=== PATIENT | female | born 1950 | race Caucasian/White ===

== ENCOUNTER → 2018-02-23 08:30 | Outpatient (CLI) | payer MEDICARE, SELFPAY ==
[2018-02-23 10:58] LABS: Anion Gap 7 (5-15); BUN 18 mg/dL (7-18); BUN/Creat Ratio 20.3 RATIO (10-20); Calcium,Total 8.9 mg/dL (8.5-10.1); Chloride 105 mmol/L (98-107); Cholesterol 217 mg/dL (200); Creatinine, Serum 0.89 mg/dL (0.55-1.02); EST Glomerular Filtration Rate 68 mL/min (>60); Est Glom Filt Rate - Afr Amer 82 mL/min (>60); Free T3 2.6 pg/mL (2.18-3.98); Glucose 93 mg/dL (74-106); High Density Lipoprotein 63 mg/dL; Potassium 3.7 mmol/L (3.5-5.1); Sodium Level 139 mmol/L (136-145); T4 Total, Thyroxin 12.9 ug/dL (4.8-13.9); Thyroid Stim Hormone (TSH) 2.33 uIU/mL (0.358-3.74); Triglycerides 148 mg/dL; Very Low Density Lipoprotein 30 mg/dL (5-40)
== END ==
PROVIDERS: Family Provider Family Medicine; PCP Family Medicine; Visit Provider Family Medicine
DX: I10 Essential (primary) hypertension (principal); E03.9 Hypothyroidism, unspecified
CPT/HCPCS: 36415; 80048; 80061; 84436; 84443; 84481

== ENCOUNTER → 2018-05-03 16:23 | Outpatient (CLI) | payer MEDICARE, SELFPAY ==
[2018-05-03 17:18] LABS: Erythrocyte Sedimentation Rate 17 mm/hr (0-30)
[2018-05-03 17:21] LABS: Absolute Lymphocyte Count 1.79 X10^3/ul (0.83-4.51); Absolute Neutrophil Count 5.5 X10^3/uL (2.0-7.7); Basophil# 0.02 X10^3/uL; Basophil% 0.2 % (0-1); Eosinophil# 0.16 X10^3/uL; Hematocrit 39.2 % (37-47); Hemoglobin 12.6 g/dl (12.0-15.0); Lymphocyte # 1.79 X10^3/ul (4.0); Lymphocyte % 22.1 % (19-41); Mean Corp Hgb Conc 32.1 g/gl (32-36); Mean Corpuscular Hgb 28.1 pg (27.0-32.0); Mean Corpuscular Volume 87.3 fL (81-99); Mean Platelet Vol. 10.7 fl (6.2-12.0); Monocyte% 7.4 % (0-10); Neutrophil # 5.51 X10^3/uL (2.7-7.7); Neutrophil % 68.2 % (47-70); Platelet Count 262 K/mm3 (150-450); RBC Distribution Width CV 13.4 % (11.6-14.6); RBC Distribution Width SD 42.7 fl (35.1-43.9); Red Blood Count 4.49 M/mm3 (4.2-5.4); White Blood Count 8.1 K/mm3 (4.4-11.0)
[2018-05-03 17:22] LABS: POSITIVE COUNT NO; POSITIVE DIFFERENTIAL NO; POSITIVE MORPHOLOGY NO
[2018-05-03 17:33] LABS: CRP 4.99 mg/L (0.0-3.0)
== END ==
PROVIDERS: Family Provider Family Medicine; PCP Family Medicine; Visit Provider Specialist
DX: M17.12 Unilateral primary osteoarthritis, left knee (principal); M25.561 Pain in right knee
CPT/HCPCS: 36415; 85025; 85652; 86140

== ENCOUNTER → 2018-05-11 14:41 | Outpatient (CLI) | payer MEDICARE, SELFPAY ==
[2018-05-11 18:09] LABS: ALB/GLOB Ratio 1.1 RATIO (0.9-2.4); AST(SGOT) 22 U/L (15-37); Alanine Aminotransfer ALT/SGPT 25 U/L (13-56); Albumin, Serum 3.9 g/dL (3.2-5.0); Alkaline Phosphatase 110 U/L (45-117); Anion Gap 8 (5-15); BUN 18 mg/dL (7-18); BUN/Creat Ratio 20.1 RATIO (10-20); Calcium,Total 9.3 mg/dL (8.5-10.1); Chloride 102 mmol/L (98-107); Creatinine, Serum 0.89 mg/dL (0.55-1.02); EST Glomerular Filtration Rate 67 mL/min (>60); Est Glom Filt Rate - Afr Amer 81 mL/min (>60); Globulin 3.5 g/dL (2.2-4.2); Glucose 93 mg/dL (74-106); Protein, Total 7.4 g/dL (6.4-8.2); Sodium Level 142 mmol/L (136-145)
== END ==
PROVIDERS: Family Provider Family Medicine; PCP Family Medicine; Visit Provider Family Medicine
DX: Z01.818 Encounter for other preprocedural examination (principal)
CPT/HCPCS: 36415; 80053

== ENCOUNTER 2018-05-30 06:11 | Inpatient (IN) | payer MEDICARE, SELFPAY ==
[2018-05-16 14:01] VITALS: BP 141/78; PULSE 87; RESP 18; TEMP 36.2; O2SAT 96; BMI 40.5
[2018-05-16 14:43] LABS: International Normalized Ratio 1.1; Prothrombin Time (Protime)PT. 13.8 SECONDS (11.7-14.9)
[2018-05-16 14:44] LABS: Partial Thromboplast Time 42.9 Seconds (24.1-36.2)
[2018-05-16 15:47] LABS: Thyroid Stim Hormone (TSH) 1.52 uIU/mL (0.358-3.74)
--- NOTE | 2018-05-17 13:19 | HP.PCM_ITS ---
History and Physical DATE OF SURGERY: 05/30/2018 SCHEDULED PROCEDURE: left total knee arthroplasty HISTORY OF PRESENT ILLNESS: This is a 68-year-old female who has been having ongoing pain for the past 7 months in the left knee. Patient also is complaining of pain in the right knee. Patient underwent a previous right partial unicompartmental knee replacement in 2006 by outside physician. Patient states her left knee pain has been constant, aching, sharp, and sore. She has increased pain going up and down stairs, walking a moderate distance. Rest is somewhat helpful. Patient has difficult time with activities of daily living that requires any kneeling, steps, walking long distance. Patient has tripped/stumbled secondary to the left knee pain. She feels unsafe going up and down stairs and getting into the top for shower. Patient has tried rest, elevation, cortisone injection and weight loss with minimal relief. Patient has had previous [address] Asif. Patient has also undergone a left knee arthroscopy in 2016. Patient currently denies any chest pain, shortness of breath, fevers chills, recent infections. After discussion with Dr. Augusto Sellers, the patient elected to proceed with a left total knee arthroplasty. We are obtaining surgical clearance from patient's primary care physician. Patient has medical history pertinent for hypertension. REVIEW OF SYSTEMS: ROS: Const: Denies change in appetite, fever and weight change. CV: Denies chest pain, heart murmur and irregular heartbeat. Resp: Denies cough, pneumonia, shortness of breath, tuberculosis and wheezing. GI: Denies constipation, diarrhea, heartburn, nausea, rectal itching, bloody stools and vomiting. : . (F Genital Sx) Denies incontinence. Musculo: Reports trouble walking and weakness, but denies leg swelling and pain. Skin: Denies Raynaud's, history of shingles and tattoo. Neuro: Denies ambulatory dysfunction, dizziness, numbness/tingling and tremor. Psych: Reports stress, but denies anxiety and insomnia. Donald/Lymph: Reports bleeding/bruising tendency, but denies anemia and past transfusion. Reviewed, no changes. PAST MEDICAL HISTORY: Advance Care Plan: No Advance Directives Effective Date: 05/03/2018 PMH: Medical Problems: Arthritis, High Blood Pressure, Hypercholesterolemia, Ulcers, Vision Problems/ Blind, Diverticulitis Accidents: Biceptal Tendon - (1997) WORK INJURY Surgical Hx: Gallbladder - (1994) Hysterectomy - (1987) Tubal Ligation - (1983) Tonsillectomy - (1963) LT & RT Hand - (1951) RT Knee LT Knee Arhtroscopy - (2015) RT Shoulder Arthroscopy - (1997) Federico Bunion SX LT Partial Knee Replacment - (1999) DR HOLGUIN Breast Reduction - (2004) Peptic Ulcer - (08/2017) Anesthesia Complications: None Assistive Devices: Glasses Reviewed, no changes. SOCIAL HISTORY: SH: Marital: .Occupation: Retired.Work Status: Retired.Hand Dominance: Left- handed. Personal Habits: Cigarette Use: Never Smoked Cigarettes.Alcohol: Denies use.Drug Use: Denies Use.Enjoy Exercising: Never Exercises. Reviewed, no changes. VITALS: Ht: 62.5 Wt: 224lb Wt k.606 BMI: 40.3 BP: 137/75 Pulse: 83 Resp: 16 T: 98.1 T: 36.7C ALLERGIES: Levaquin Phenobarbital Latex MEDICATIONS: Atorvastatin Calcium 40 mg 1 tab PO daily, Celebrex 200 mg 1 by mouth every day , Citalopram Hydrobromide 20 mg 1 tab PO daily, Losartan Potassium 100 mg 1 tab PO daily, Levothyroxine Sodium 100 mcg 1 tab PO daily, Vitamin D3 1000 Unit 1 cap PO daily, Vitamin B12 1000 mcg 1 tab PO daily, Pantoprazole Sodium 40 mg 1 tab PO daily, Advil 200 mg prn PRE-OP EXAM: General appearance:NORMAL Other: Eyes: Conjunctivae and lids: NORMAL Pupils: ERR Ears, Nose, Mouth, and Throat: NORMAL Other: Inspection of lips, teeth and gums: NORMAL Other: Neck: Examination of neck: no masses noted. Respiratory: Assessment of respiratory effort: NORMAL Other: Auscultation of lungs: clear to auscultation no wheezes, rhonchi or rales. Cardiovascular: Auscultation of heart: regular rate and rhythm, no murmurs, gallops or rubs. Exam of carotid arteries: NORMAL Other: Gastrointestinal: Exam of abdomen: soft, nontender, nondistended bowel sounds present. PHYSICAL EXAMINATION: Left knee is cool to touch without erythema or signs of infection. There is valgus alignment. Range of motion is 0 of extension to 105 of flexion. Patient has good strength of the left knee. Stable to varus and valgus stress test. There is mild effusion appreciated. Sensations intact to light touch. Patient has pain over the medial aspect of the left knee. IMAGING STUDIES: X-rays bilateral knees were obtained and it [facility] which revealed left knee valgus alignment and lateral joint space narrowing, subchondral sclerosis, and osteophyte formation consistent with severe tricompartmental osteoarthritis. Right knee reveals a previous well- placed L6 lateral compartment arthroplasty with progressive medial joint space narrowing and patellofemoral joint space narrowing with subchondral sclerosis consistent with progressive osteoarthritis of the right knee. IMPRESSION: 1. Right left osteoarthritis 2. Painful right total knee arthroplasty 3. Hypertension 4. Hypercholesterolemia 5. History of ulcers 6. History of diverticulitis PLAN: Dr. Sellers did discuss and review with the patient all treatment options including surgical versus nonsurgical options. Patient does wish to proceed with the above-stated procedure. Potential risks, benefits, and complications of the procedure were discussed in detail including but not limited to , infection, nerve and blood vessel damage, persistent pain, numbness, tingling, paresthesias, blood clot, pulmonary embolism, and requirement for possible further surgery. The patient expressed full understanding and has no further questions for the doctor. Patient does agree to proceed with the above-stated procedure and has signed the surgery consent form. ___ I have re-examined the patient. There are no clinical changes since date of exam. ___ See progress notes for changes. ___ Dictated on admission Date: Time: Signature:
[2018-05-30] VITALS (12 sets, daily range): BP systolic 118–140; BP diastolic 51–72; PULSE 68–95; RESP 12–18; TEMP 36.2–36.6; O2SAT 87–99; BMI 40.5
--- NOTE | 2018-05-30 07:14 | RAD_ITS ---
STUDY: X-RAY - LEFT KNEE REASON FOR EXAM: Female, 68 years old. Total knee replacement. TECHNIQUE: AP and lateral view(s) of the knee. COMPARISON: Comparison is made with prior study dated February 15, 2017. FINDINGS: Normal visualized distal femur. Normal visualized proximal tibia and fibula. Normal proximal tibiofibular articulation. The patient is status post total knee replacement. There is good alignment. Postoperative soft tissue changes. RAD/Knee 1 or 2 Views IMPRESSION: Status post total knee replacement. There is good alignment. Postoperative soft tissue changes. Electronically Signed: Fabian Chapman MD at 13:24 EDT Tel [phone], Service support ,
[2018-05-30] MEDS: Celecoxib 200 MG Capsule 400 MG PO (07:18)
[2018-05-30] MEDS: Acetaminophen 500 MG Tablet 1000 MG PO ×3 (07:18→21:34)
[2018-05-30] MEDS: oxyCODONE HCl Cr 10 MG Tablet PO (07:19)
[2018-05-30] MEDS: Lactated Ringers 1,000 ML 999 ML IV (08:08)
--- NOTE | 2018-05-30 09:29 | PCM.OPRPT ---
Report of Operation Date of Procedure: 05/30/18 Pre-Operative Diagnosis: Left knee primary osteo-arthritis Post-Operative Diagnosis: Left knee primary osteoarthritis Surgery/Procedure Performed:: Left total knee replacement Description of Surgical Findings:: Stable knee with good patella tracking. Due to chronic valgus alignment and lateral contractures lateral release had to be performed. humidifier operator: Kevin Carlos Type of Anesthesia:: General Anesthesiologist: Dieudonne Long Special Medications: 2 g Ancef, 1 g TXA at incision, 1 g TXA closure, 10 mg Decadron, joint cocktail (5 mg Duramorph, 30 mL of 0.5% Ropivicaine, 1000 units of epinephrine, 30 mg of Toradol) Specimen's removed: Bony cuts Estimated Blood Loss (mL): 25 Fluids Replaced: 1600 ML Description of Procedure: Implants used: 1. Sublette size 4 triathlon cruciate retaining distal femoral component 2. Kimberly size 3 universal tibial baseplate 3. Kimberly X3 3 mm CS polyethylene 4. Kimberly X3 29 mm asymmetric patella Brief history operative indications: 68-year-old f with history of left knee osteoarthritis with radiographic findings with loss of joint space, osteophyte formation and subchondral sclerosis. Failed conservative measures as mentioned in the H&P. Discussion of total knee arthroplasty as well as risk and benefits were discussed the patient including but not limited to blood loss, DVTs, PEs, neurovascular damage, general risk of anesthesia including loss of life, and stiffness or instability were discussed with patient. Patient demonstrated understanding and was able to sign informed consent. Procedure: On the date of procedure patient's left lower extremity was marked in the preoperative area. The patient was then taken back to the operating room where the patient was placed on the table in the supine position. All bony prominences were identified a well-padded. Anesthesia assumed control of the C-spine and airway and remained controlled throughout the remainder of the procedure. A tourniquet was placed on the left upper thigh and the leg was prepped in a sterile fashion. The surgeon then scrubbed at this time .Upon reentering the room left lower extremity was draped in a standard orthopedic fashion. A timeout was then called and everyone agreed upon the side, the site, the procedure to be performed, patient's identity and antibiotics given. Esmarch bandage was used to exsanguinate the extremity and the tourniquet was placed up to 250 mmHg with the knee in flexion. A midline skin incision was made and sharp dissection was taken down through skin subcutaneous tissue and fat. The standard medial parapatellar incision was made and the patella was subluxed laterally. The standard deep MCL release was done and the fat pad was resected. Next our attention was directed to the femur. Navigation pins were placed, navigation was registered. The distal femoral cutting block was pinned into place and 10 mm of distal femur resection was completed. The distal femoral cut was verified with navigation. The knee was then placed in deep flexion in the standard path intelligence sizing guide was used to place the femoral component in 3? external rotation based on the posterior condyles. A size 4 4-in-1 cutting block was selected and pinned into place. The anterior cut was then made and checked for notching. The subsequent anterior chamfer cuts, posterior condylar cuts and posterior chamfer cuts were made while ensuring the MCL and LCL were protected. Our attention was then turned to the tibia where the navigation pins were placed, navigation was registered. [employer] tibial cutting guide was used to make the appropriate tibial cut 90 degrees from the mechanical axis. Navigation was then used to verify the cut. A size 3 tibial base plate was selected. the knee was flexed to 90 degrees and the soft tissues and posterior osteophytes were removed from the joint. 40 cc of the periarticular injection was injected into the posterior medial corner of the joint. The appropriate trials were then placed on the femur and tibia. A trial polyethylene was trialed to ensure proper balancing and stability of the knee. Patella tracking, was then verified and corrected appropriately as needed. The appropriate tibial internal rotation was then marked with a bovie. Our attention was then directed to the patella. The patella was everted and a flat resection was made. The lug holes were drilled and the patella trial was placed. Patellar tracking was checked and deemed appropriate. Once we were happy lug holes were drilled for the femur and trial components were removed. the tibia was subluxed and pinned into place and the keel was punched and the canal was reamed. Final components were verified and opened, and cement was mixed in a vacuum. path intelligence Simplex cement was used. The wound was copiously irrigated with normal saline. When the cement was ready the components were cemented into place starting with the tibia, femur and finally the patella. The trial poly component was placed and the knee was placed in full extension. All excess cement was removed in the process. Once the cement had cured the tracking, alignment and balance were verified and a size 9 mm CS polyethylene component was placed. Once the final components were placed the wound was copiously irrigated with normal saline solution and the periarticular injection was given. The wound was closed in a layer mendoza fashion using #1 vicryl interrupted sutures for the arthrotomy, 2-0 interrupted Vicryl suture for the subcuticular layer and steffen for final skin closure. A sterile compressive dressing was then placed. The patient was then awakened from anesthesia, transferred to the [place] and transferred to the PACU for recovery. Post op plan DVT ppx: ASA 81mg, thigh high compression stockings Follow up: in office in 2 weeks for wound check PT: to start POD #0 at hospital, outpatient PT should be arranged. My physician assistant professor of forestry was a vital part of this case. He was important in appropriate retraction during the case, and protection of soft tissues during bony cuts. His intimate knowledge of the case and my steps aided in safe and expedient completion of the procedure as well as appropriate position of the leg during the case. He was also vital in assisting with closure under my direct supervision. Grafts/Implants Used: Sublette triathlon total knee - Complications NONE - Admit VTE Documentation VTE Present on Admission: No VTE Mechan Device Prophylaxis: SCD's, Thigh High JESSICA Hose VTE Pharm Prophylaxis ordered?: Yes
[2018-05-30] MEDS: Cefazolin 2 GM in 0.9% Normal Saline 100 ML IV (09:30)
[2018-05-30] MEDS: Lactated Ringers 1,000 ML 125 ML IV (12:44)
[2018-05-30] MEDS: Senna/Docusate Sodium 1 Tablet 2 TABLET PO ×2 (17:26→21:33)
[2018-05-30] MEDS: Citalopram 20 MG Tablet PO (17:27)
[2018-05-30] MEDS: Famotidine 20 MG Tablet PO (17:27)
[2018-05-30] MEDS: Aspirin 81 MG TAB.CHEW PO (17:33)
[2018-05-30] MEDS: Cefazolin 1 GM/50 ML BAG IV (17:34)
[2018-05-30] MEDS: Atorvastatin Calcium 40 MG Tablet PO (21:34)
[2018-05-31] VITALS (7 sets, daily range): BP systolic 111–147; BP diastolic 45–76; PULSE 60–80; RESP 16–18; TEMP 35.9–37.1; O2SAT 92–96
[2018-05-31] MEDS: oxyCODONE 5 MG Tablet PO ×2 (00:31→09:38)
[2018-05-31] MEDS: Cefazolin 1 GM/50 ML BAG IV (00:32)
[2018-05-31] MEDS: Acetaminophen 500 MG Tablet 1000 MG PO ×3 (05:50→21:24)
[2018-05-31] MEDS: Levothyroxine 100 MCG Tablet PO (05:50)
[2018-05-31 06:14] LABS: Hematocrit 32.1 % (37-47); Hemoglobin 10.4 g/dl (12.0-15.0); Mean Corp Hgb Conc 32.4 g/gl (32-36); Mean Corpuscular Hgb 28.7 pg (27.0-32.0); Mean Corpuscular Volume 88.4 fL (81-99); Mean Platelet Vol. 11.2 fl (6.2-12.0); Platelet Count 190 K/mm3 (150-450); RBC Distribution Width SD 40.8 fl (35.1-43.9); Red Blood Count 3.63 M/mm3 (4.2-5.4); White Blood Count 15.6 K/mm3 (4.4-11.0)
[2018-05-31 06:18] LABS: Anion Gap 8 (5-15); BUN 16 mg/dL (7-18); BUN/Creat Ratio 21.2 RATIO (10-20); Calcium,Total 8.2 mg/dL (8.5-10.1); Chloride 107 mmol/L (98-107); Creatinine, Serum 0.76 mg/dL (0.55-1.02); EST Glomerular Filtration Rate 81 mL/min (>60); Est Glom Filt Rate - Afr Amer 99 mL/min (>60); Estimated Creatinine Clearance 43.77 ml/min; Glucose 157 mg/dL (74-106); Potassium 4.4 mmol/L (3.5-5.1); Sodium Level 140 mmol/L (136-145)
[2018-05-31 06:37] LABS: Scan Indicated on CBC? Y/N NO
--- NOTE | 2018-05-31 09:04 | PN.ORTHO_ITS ---
Subjective: The patient was sitting in bedside chair upon examination. Patient denies any chest pain, shortness of breath, dizziness, nausea or vomiting, or calf pain. Patient did state she had some lightheadedness when she first stands up but this has improved. Pain is controlled on medications. No adverse overnight events. Patient lives with her son and states they have 4 children at the house. She is wishing to go to [facility]. Objective: Vital signs stable and afebrile. Patient is able to plantarflex and dorsiflex actively. Sensation is intact to light touch to saphenous, sural, superficial and deep peroneal, and tibial distribution. Dressing is drainage over the proximal, middle, and distal incision. It is not contacting 3 sides. Patient has already had one dressing changed yesterday. Will continue to monitor. Negative Homans bilaterally, negative signs and symptoms of DVT. - Physical Exam General: Alert, Oriented x3, Cooperative, No apparent distress Vital Signs Temp Pulse Resp BP Pulse Ox 98.3 F 74 17 131/64 H 92 05/31/18 03:56 05/31/18 07:37 05/31/18 07:37 05/31/18 03:56 05/31/18 07:35 Oxygen Flow Rate (L/min) 2 Oxygen Delivery Method Room Air Weight: 102.2 kg Body Mass Index (BMI) 40.5 Intake and Output for Last 24 Hours 05/29/18 05/30/18 05/31/18 23:59 23:59 23:59 Intake Total 2600 / 2600 Output Total 1100 / 1100 Balance 1500 / 1500 Laboratory Tests Past 24 Hrs 05/31/18 05/31/18 05:50 05:50 WBC 15.6 H RBC 3.63 L Hgb 10.4 L Hct 32.1 L MCV 88.4 MCH 28.7 MCHC 32.4 RDW 13.0 RDW Differential 40.8 Plt Count 190 MPV 11.2 Sodium 140 Potassium 4.4 Chloride 107 Carbon Dioxide 25.0 Anion Gap 8 BUN 16 Creatinine 0.76 Estim Creat Clear Calc 43.77 Est GFR (MDRD) Af Amer 99 Est GFR (MDRD) Non-Af 81 BUN/Creatinine Ratio 21.2 H Glucose 157 H Calcium 8.2 L Medical Necessity - Tobacco Use Smoking Status: Never smoker Tobacco Use: Non-smoker Assessment/Plan All Active Problems (Last Updated 01/31/18 @ 09:07 by Andrade Lindo) Elevated serum creatinine (Acute) Dehydration (Acute) 1. S/P right total knee arthroplasty POD #1 2. Continue Pain Medications: Tylenol and OxyIR 3. DVT Prophylaxis: 81 mg aspirin twice daily for 4 weeks 4. PT/OT: Weightbearing as tolerated 5. H & H: 10.4/32.1, asymptomatic 6. Leukocytosis: Currently 15.6, afebrile. Patient did receive Decadron intraoperatively. 7. Encouraged Incentive Spirometry 8. Disposition: Plan is for discharge to nursing home facility at [facility]. Case management will be involved with discharge planning.
[2018-05-31] MEDS: Citalopram 20 MG Tablet PO (09:37)
[2018-05-31] MEDS: Aspirin 81 MG TAB.CHEW PO ×2 (09:37→16:46)
[2018-05-31] MEDS: Famotidine 20 MG Tablet PO (09:37)
[2018-05-31] MEDS: Senna/Docusate Sodium 1 Tablet 2 TABLET PO (09:37)
[2018-05-31] MEDS: Losartan Potassium 100 MG Tablet PO (09:37)
[2018-05-31] MEDS: 0.9% NaCl Peripheral Flush Adult/Peds IV (11:34)
[2018-05-31] MEDS: Ketorolac 15 MG/ML Vial IV (11:34)
--- NOTE | 2018-05-31 15:36 | CASEMGMT ---
Social Work Note Rocky ARTIS updated this worker that pt would like to go to [facility] at discharge for rehabilitation. SW reviewed PT/OT evaluations. Pt walked 150 ft with OT and OT is recommending pt go home with outpatient therapy. Pt walked 175 ft with physical therapy and PT recommending further skilled therapy. SW informed pt of this. SW explained that since pt did well with PT and OT and OT is recommending pt can go home with therapy there is a good chance pt will get denied SNF placement. NYDIA educated pt on Home with [facility] or home with outpatient therapy. Pt states that she would like Home Health Care set up as she is unable to drive right now due to her knee replacement. Pt states that she would also like a shower chair for her bathtub and would like the equipment to help get her shoes on. SW explained that this worker will inform CM of pt's request and the CM can work on getting equipment and [facility] set up for pt. Pt states understanding. SW explained that insurance may not cover the equipment and pt could probably find equipment at [facility]. Pt states understanding. Pt denied additional needs or concerns at this time. NYDIA updated RN CM Mayda Castro of [facility] referral and pt's request for medical equipment. Plan: Pt to discharge home with [facility] Mayda Frey CDS SALES ADVISOR, THERAPY MANAGER
[2018-05-31] MEDS: Bisacodyl 5 MG Tablet PO (16:46)
[2018-05-31] MEDS: Atorvastatin Calcium 40 MG Tablet PO (21:24)
[2018-06-01] MEDS: oxyCODONE 5 MG Tablet PO ×2 (01:26→07:54)
[2018-06-01 03:00] VITALS: BP 132/63; PULSE 59; RESP 16; TEMP 36.7; O2SAT 95
[2018-06-01 06:07] LABS: Hematocrit 31.3 % (37-47); Mean Corp Hgb Conc 31.9 g/gl (32-36); Mean Corpuscular Hgb 28.6 pg (27.0-32.0); Mean Corpuscular Volume 89.4 fL (81-99); Mean Platelet Vol. 11.2 fl (6.2-12.0); Platelet Count 191 K/mm3 (150-450); RBC Distribution Width CV 13.3 % (11.6-14.6); RBC Distribution Width SD 42.5 fl (35.1-43.9); White Blood Count 9.6 K/mm3 (4.4-11.0)
[2018-06-01 06:08] LABS: Scan Indicated on CBC? Y/N NO
[2018-06-01] MEDS: Acetaminophen 500 MG Tablet 1000 MG PO (06:18)
[2018-06-01] MEDS: Levothyroxine 100 MCG Tablet PO (06:18)
--- NOTE | 2018-06-01 07:09 | PCM.PN.ORT ---
Subjective: The patient was sitting in bedside chair upon examination. Patient denies any chest pain, shortness of breath, dizziness, lightheadedness, nausea or vomiting, or calf pain. Pain is controlled on medications. No adverse overnight events. Patient does report soreness in the right knee but medications are helpful. Patient did not qualify for senior care facility and will be going home with home health care. Objective: Vital signs stable and afebrile. Patient is able to plantarflex and dorsiflex actively. Sensation is intact to light touch to saphenous, sural, superficial and deep peroneal, and tibial distribution. Dressing with drainage over the proximal/middle/distal incision which has slightly increased. New Mepilex dressing will be placed prior to discharge. Negative Homans bilaterally, negative signs and symptoms of DVT. - Physical Exam General: Alert, Oriented x3, Cooperative, No apparent distress Vital Signs Temp Pulse Resp BP Pulse Ox 98.0 F 59 L 16 132/63 H 95 06/01/18 03:00 06/01/18 03:00 06/01/18 03:00 06/01/18 03:00 06/01/18 03:00 Oxygen Flow Rate (L/min) 2 Oxygen Delivery Method Room Air Weight: 102.2 kg Body Mass Index (BMI) 40.5 Intake and Output for Last 24 Hours 05/30/18 05/31/18 06/01/18 23:59 23:59 23:59 Intake Total 2600 / 2600 450 / 450 Output Total 1100 / 1100 Balance 1500 / 1500 450 / 450 Laboratory Tests Past 24 Hrs 06/01/18 05:35 WBC 9.6 RBC 3.50 L Hgb 10.0 L Hct 31.3 L MCV 89.4 MCH 28.6 MCHC 31.9 L RDW 13.3 RDW Differential 42.5 Plt Count 191 MPV 11.2 Medical Necessity - Tobacco Use Smoking Status: Never smoker Tobacco Use: Non-smoker Assessment/Plan All Active Problems (Last Updated 01/31/18 @ 09:07 by Andrade Lindo) Elevated serum creatinine (Acute) Dehydration (Acute) 1. S/P right total knee arthroplasty POD #2 2. Continue Pain Medications: Tylenol and OxyIR 3. DVT Prophylaxis: 81 mg aspirin twice daily for 4 weeks 4. PT/OT: Weightbearing as tolerated 5. H & H: 10.0/31.3, asymptomatic 6. Leukocytosis: Resolved currently 9.6, afebrile. Patient did receive Decadron intraoperatively. 7. Encouraged Incentive Spirometry 8. Disposition: Orthopedically stable, plan is for discharge home with home health therapy today. New Mepilex dressing will be placed. If patient has any continued drainage over the next 4-5 days patient will call her office and schedule follow-up earlier. Prescriptions will be E scribed to [facility]. Patient will follow-up per postop instructions.
--- NOTE | 2018-06-01 07:12 | PN.ORTHO_ITS ---
Subjective: The patient was sitting in bedside chair upon examination. Patient denies any chest pain, shortness of breath, dizziness, lightheadedness, nausea or vomiting , or calf pain. Pain is controlled on medications. No adverse overnight events. Patient does report soreness in the right knee but medications are helpful. Patient did not qualify for nursing home facility and will be going home with home health care. Objective: Vital signs stable and afebrile. Patient is able to plantarflex and dorsiflex actively. Sensation is intact to light touch to saphenous, sural, superficial and deep peroneal, and tibial distribution. Dressing with drainage over the proximal/middle/distal incision which has slightly increased. New Mepilex dressing will be placed prior to discharge. Negative Homans bilaterally, negative signs and symptoms of DVT. - Physical Exam General: Alert, Oriented x3, Cooperative, No apparent distress Vital Signs Temp Pulse Resp BP Pulse Ox 98.0 F 59 L 16 132/63 H 95 06/01/18 03:00 06/01/18 03:00 06/01/18 03:00 06/01/18 03:00 06/01/18 03:00 Oxygen Flow Rate (L/min) 2 Oxygen Delivery Method Room Air Weight: 102.2 kg Body Mass Index (BMI) 40.5 Intake and Output for Last 24 Hours 05/30/18 05/31/18 06/01/18 23:59 23:59 23:59 Intake Total 2600 / 2600 450 / 450 Output Total 1100 / 1100 Balance 1500 / 1500 450 / 450 Laboratory Tests Past 24 Hrs 06/01/18 05:35 WBC 9.6 RBC 3.50 L Hgb 10.0 L Hct 31.3 L MCV 89.4 MCH 28.6 MCHC 31.9 L RDW 13.3 RDW Differential 42.5 Plt Count 191 MPV 11.2 Medical Necessity - Tobacco Use Smoking Status: Never smoker Tobacco Use: Non-smoker Assessment/Plan All Active Problems (Last Updated 01/31/18 @ 09:07 by Andrade Lindo) Elevated serum creatinine (Acute) Dehydration (Acute) 1. S/P right total knee arthroplasty POD #2 2. Continue Pain Medications: Tylenol and OxyIR 3. DVT Prophylaxis: 81 mg aspirin twice daily for 4 weeks 4. PT/OT: Weightbearing as tolerated 5. H & H: 10.0/31.3, asymptomatic 6. Leukocytosis: Resolved currently 9.6, afebrile. Patient did receive Decadron intraoperatively. 7. Encouraged Incentive Spirometry 8. Disposition: Orthopedically stable, plan is for discharge home with home health therapy today. New Mepilex dressing will be placed. If patient has any continued drainage over the next 4-5 days patient will call her office and schedule follow-up earlier. Prescriptions will be E scribed to [facility]. Patient will follow-up per postop instructions.
--- NOTE | 2018-06-01 07:17 | DCINST_ITS ---
Discharge Diet: No Restrictions Discharge Activity: May Not Drive May shower in (days): 1 - Turned dressing away from water Ice area for (Minutes): 20 - every hour while awake. Weight Bearing Status: Weight bearing as tolerated Elevate: Operative Extremity Additional Activity Instructions:: Wear elastic stockings for 2 weeks after your surgery. Call your doctor if your incision/area has: Continuous Slow Oozing, Sudden Increased Bleeding, Increased Pain/ Swelling, Increased Redness, Foul Smelling Discharge Call your doctor if you observe: Fever of 101 or Higher, Coldness, Increased Pain, Numbness or Tingling, Change in Color, Calf discomfort, Uncontrolled pain Remove Dressing in (days):: 4 - Okay to remove on June 05, 2018 Additional Instructions: Follow [facility] postop instructions If you have any continued drainage please contact [facility] and will need to be seen for early follow-up. Allergies/Adverse Reactions: Allergies bee venom protein (honey bee) Allergy (Verified 05/16/18 13:35) Anaphylaxis levofloxacin [From Levaquin] Allergy (Verified 05/16/18 13:35) Hives phenobarbital Allergy (Verified 05/16/18 13:39) Unknown Latex, Natural Rubber Adverse Reaction (Verified 05/16/18 13:35) Other Medications to take at Discharge Atorvastatin Calcium 40 mg PO QHS 09/09/17 Cholecalciferol (Vitamin D3) [Vitamin D3] 2,000 unit PO DAILY 09/09/17 Levothyroxine [Synthroid] 100 mcg PO DAILY 09/09/17 Losartan Potassium [Cozaar] 100 mg PO DAILY 09/09/17 Celecoxib 200 mg PO QDAY PRN 05/16/18 Citalopram Hydrobromide [Celexa] 20 mg PO DAILY 05/16/18 Pantoprazole Sodium [Protonix] 40 mg PO DAILY PRN 05/16/18 Acetaminophen [Tylenol] 1,000 mg PO Q8 #90 tab 06/01/18 Aspirin [Aspirin, Baby] 81 mg PO BIDCM #60 tab.chew 06/01/18 Oxycodone [Oxyir] 5 - 10 mg PO Q4H PRN PRN 6 Days #80 tablet 06/01/18 The following prescriptions were given: Oxycodone [Oxyir] 5 - 10 mg PO Q4H PRN PRN 6 Days #80 tablet PRN Reason: Mod-Severe Pain (4-08/08) Acetaminophen [Tylenol] 1,000 mg PO Q8 #90 tab Aspirin [Aspirin, Baby] 81 mg PO BIDCM #60 tab.chew Primary Care Physician: Giovanny Felder MD [Primary Care Provider] - Test Results: Test results from this visit will be discussed in further detail at your follow- up appointment, if applicable. Please Follow Up With: home health physical therapy Please Follow Up With: Amado Shepard PA-C When: 06/13/18 @ 9:15 am
[2018-06-01 07:24] VITALS: O2SAT 92
[2018-06-01 07:28] VITALS: PULSE 62; RESP 17
[2018-06-01] MEDS: Aspirin 81 MG TAB.CHEW PO (07:55)
[2018-06-01] MEDS: Losartan Potassium 100 MG Tablet PO (10:54)
[2018-06-01] MEDS: Citalopram 20 MG Tablet PO (10:58)
[2018-06-01] MEDS: Famotidine 20 MG Tablet PO (10:58)
[2018-06-01 11:01] VITALS: BP 116/72; PULSE 77; RESP 18; TEMP 36.8; O2SAT 95
[2018-06-01] MEDS: Celecoxib 200 MG Capsule PO (12:01)
== END 2018-06-01 13:37 | disposition home health service (06) | DRG 470 ==
PROVIDERS: Anesthesiology; Admitting Provider Specialist; Family Provider Family Medicine; PCP Family Medicine; Visit Provider Specialist
PROC: 0SRD0J9 Replacement of Left Knee Joint with Synthetic Substitute, Cemented, Open Approach (ICD-10-PCS; CPT 27447; principal; 2018-05-30 08:30)
DX: M17.12 Unilateral primary osteoarthritis, left knee (principal); E86.0 Dehydration; I10 Essential (primary) hypertension; E78.00 Pure hypercholesterolemia, unspecified; H54.7 Unspecified visual loss; F32.9 Major depressive disorder, single episode, unspecified; F41.9 Anxiety disorder, unspecified; E07.9 Disorder of thyroid, unspecified
CPT/HCPCS: 36415; 73560; 80048; 84443; 85027; 85610; 85730; 87077; 87081; 94762; 97110; 97116; 97162; 97165; 97530; 97535; 99251; C1776; J7120; A4216; G0463; J2405

== ENCOUNTER → 2018-07-16 14:05 | Outpatient (CLI) | payer MEDICARE, SELFPAY ==
[2018-07-16 15:15] LABS: Albumin, Serum 3.7 g/dL (3.2-5.0)
== END ==
PROVIDERS: Family Provider Family Medicine; PCP Family Medicine; Visit Provider Specialist
DX: Z01.812 Encounter for preprocedural laboratory examination (principal)
CPT/HCPCS: 36415; 82040

== ENCOUNTER 2018-07-25 08:13 | Inpatient (IN) | payer MEDICARE, SELFPAY ==
[2018-07-11 10:56] VITALS: BP 152/83; PULSE 72; RESP 16; TEMP 36.4; O2SAT 97; BMI 40.2
[2018-07-11 11:31] LABS: Absolute Lymphocyte Count 1.36 X10^3/ul (0.83-4.51); Basophil# 0.03 X10^3/uL; Basophil% 0.4 % (0-1); Eosinophil# 0.16 X10^3/uL; Eosinophils% 2.3 % (0-5); Hematocrit 38.1 % (37-47); Hemoglobin 12.2 g/dl (12.0-15.0); Lymphocyte # 1.36 X10^3/ul (4.0); Lymphocyte % 19.3 % (19-41); Mean Corpuscular Hgb 27.9 pg (27.0-32.0); Mean Platelet Vol. 10.9 fl (6.2-12.0); Monocyte# 0.49 X10^3/uL; Neutrophil # 4.99 X10^3/uL (2.7-7.7); Neutrophil % 70.9 % (47-70); Platelet Count 263 K/mm3 (150-450); RBC Distribution Width CV 13.8 % (11.6-14.6); RBC Distribution Width SD 43.4 fl (35.1-43.9); Red Blood Count 4.38 M/mm3 (4.2-5.4)
[2018-07-11 11:32] LABS: POSITIVE COUNT NO; POSITIVE DIFFERENTIAL NO; POSITIVE MORPHOLOGY NO
[2018-07-11 11:44] LABS: Anion Gap 9 (5-15); BUN 14 mg/dL (7-18); BUN/Creat Ratio 17.3 RATIO (10-20); Calcium,Total 8.9 mg/dL (8.5-10.1); Chloride 106 mmol/L (98-107); Creatinine, Serum 0.81 mg/dL (0.55-1.02); EST Glomerular Filtration Rate 75 mL/min (>60); Est Glom Filt Rate - Afr Amer 91 mL/min (>60); Estimated Creatinine Clearance 56.52 ml/min; Glucose 94 mg/dL (74-106); Potassium 3.7 mmol/L (3.5-5.1); Sodium Level 141 mmol/L (136-145)
--- NOTE | 2018-07-13 08:22 | HP.PCM_ITS ---
History and Physical DATE OF SURGERY: 07/25/2018 SCHEDULED PROCEDURE: Right unicompartmental knee arthroplasty converted to a right total knee arthroplasty HISTORY OF PRESENT ILLNESS: This is a 68-year-old female who is been having ongoing pain in the right knee for over 3 years. Patient had a previous right lateral unicompartmental knee replacement in 2006. Patient denied any postoperative problems or infections. Her pain is intermittent and aching. She has increased pain going up and down stairs. Patient states she has difficult time with activities of daily living including leisure activities. She has difficult time walking on uneven ground due to the pain. She has tripped secondary to her right knee pain. Patient previously underwent a left total knee arthroplasty on May 30, 2018 and is doing well from the surgery. She currently denies any chest pain, shortness of breath, fevers chills, recent infections. We have undergone preoperative clearance from primary care physician. Patient has medical history pertinent for hypertension and ulcers. Patient has tried oral medications consisting of Advil, Celebrex, Tylenol with minimal relief. She has been using a cane. REVIEW OF SYSTEMS: ROS: Const: Denies change in appetite, fever and weight change. CV: Denies chest pain, heart murmur and irregular heartbeat. Resp: Denies cough, pneumonia, shortness of breath, tuberculosis and wheezing. GI: Denies constipation, diarrhea, heartburn, nausea, rectal itching, bloody stools and vomiting. : Denies incontinence. Musculo: Reports trouble walking and weakness, but denies leg swelling and pain. Skin: Denies Raynaud's, history of shingles and tattoo. Neuro: Denies ambulatory dysfunction, dizziness, numbness/tingling and tremor. Psych: Reports stress, but denies anxiety and insomnia. Donald/Lymph: Reports bleeding/bruising tendency, but denies anemia and past transfusion. Reviewed, no changes. PAST MEDICAL HISTORY: Advance Care Plan: No Advance Directives Effective Date: 05/03/2018 PMH: Medical Problems: Arthritis, High Blood Pressure, Hypercholesterolemia, Ulcers, Vision Problems/ Blind, Diverticulitis Accidents: Biceptal Tendon - (1997) WORK INJURY Surgical Hx: Gallbladder - (1994) Hysterectomy - (1987) Tubal Ligation - (1983) Tonsillectomy - (1963) LT & RT Hand - (1951) RT Knee LT Knee Arhtroscopy - (2015) RT Shoulder Arthroscopy - (1997) Federico Bunion SX LT Partial Knee Replacment - (1999) DR HOLGUIN Breast Reduction - (2004) Peptic Ulcer - (08/2017) Anesthesia Complications: None Assistive Devices: Glasses Reviewed, no changes. SOCIAL HISTORY: SH: Marital: .Occupation: Retired.Work Status: Retired.Hand Dominance: Left- handed. Personal Habits: Cigarette Use: Never Smoked Cigarettes.Alcohol: Denies use.Drug Use: Denies Use.Enjoy Exercising: Never Exercises. Reviewed, no changes. VITALS: Ht: 63 Wt: 227lb 4oz Wt k.081 BMI: 40.3 BP: 138/80 T: 98.2 T: 36.8C ALLERGIES: Levaquin Phenobarbital Latex MEDICATIONS: Bactroban 2 % apply to each notril as directed 5 days prior to surgery, Atorvastatin Calcium 40 mg 1 tab PO daily, Celebrex 200 mg 1 by mouth every day , Citalopram Hydrobromide 20 mg 1 tab PO daily, Losartan Potassium 100 mg 1 tab PO daily, Levothyroxine Sodium 100 mcg 1 tab PO daily, Vitamin D3 1000 Unit 1 cap PO daily, Vitamin B12 1000 mcg 1 tab PO daily, Pantoprazole Sodium 40 mg 1 tab PO daily, Advil 200 mg prn PRE-OP EXAM: General appearance:NORMAL Other: Eyes: Conjunctivae and lids: NORMAL Pupils: ERR Ears, Nose, Mouth, and Throat: NORMAL Other: Inspection of lips, teeth and gums: NORMAL Other: Neck: Examination of neck: no masses noted. Respiratory: Assessment of respiratory effort: NORMAL Other: Auscultation of lungs: clear to auscultation no wheezes, rhonchi or rales. Cardiovascular: Auscultation of heart: regular rate and rhythm, no murmurs, gallops or rubs. Exam of carotid arteries: NORMAL Other: Gastrointestinal: Exam of abdomen: soft, nontender, nondistended bowel sounds present. PHYSICAL EXAMINATION: Right knee is cool to touch without erythema. Patient has mild effusion in the right knee. Patient has tenderness to palpation over the lateral and medial right knee. Range of motion 0 of extension to 110 of flexion. There is positive crepitus with range of motion. Sensation intact to light touch. IMAGING STUDIES: X-rays of the right knee does reveal previous well fixed lateral compartment arthroplasty with progressive medial joint space narrowing and patellofemoral joint space narrowing and subchondral sclerosis consistent with progressive osteoarthritis of the right knee. IMPRESSION: 1. Progressive right knee osteoarthritis with previous right unicompartmental knee replacement 2. Hypertension 3. History of ulcers 4. Hypercholesterolemia 5. Diverticulitis PLAN: Dr. Sellers did discuss and review with the patient all treatment options including surgical versus nonsurgical options. Patient does wish to proceed with the above-stated procedure. Potential risks, benefits, and complications of the procedure were discussed in detail including but not limited to , infection, nerve and blood vessel damage, persistent pain, numbness, tingling, paresthesias, blood clot, pulmonary embolism, and requirement for possible further surgery. The patient expressed full understanding and has no further questions for the doctor. Patient does agree to proceed with the above-stated procedure and has signed the surgery consent form. ___ I have re-examined the patient. There are no clinical changes since date of exam. ___ See progress notes for changes. ___ Dictated on admission Date: Time: Signature:
--- NOTE | 2018-07-20 12:27 | CASEMGMT ---
Call placed to patient to discuss discharge needs following upcoming surgery. Patient plans to return home with assistance from son and [id number], with whom she lives. Has outpatient physical therapy set up with [facility]. Patient has walker, canes, bath chair, high rise toilet, grab bar beside bath tub. Patient stays in finished basement where there's a bedroom and bathroom. There are 12 steps down into basement. There are 3 steps up into home from outside. Informed patient that RN-CN will likely follow up during hospital stay. Rosa Maria Giraldo LPN Clinical Support
[2018-07-25] VITALS (14 sets, daily range): BP systolic 103–137; BP diastolic 52–86; PULSE 66–93; RESP 14–18; TEMP 36–36.8; O2SAT 90–100; BMI 40.2
[2018-07-25] MEDS: Acetaminophen 500 MG Tablet 1000 MG PO ×3 (08:54→22:55)
[2018-07-25] MEDS: Celecoxib 200 MG Capsule 400 MG PO (08:55)
[2018-07-25] MEDS: oxyCODONE HCl Cr 10 MG Tablet PO (08:55)
[2018-07-25] MEDS: Lactated Ringers 1,000 ML 999 ML IV (09:09)
[2018-07-25] MEDS: Cefazolin 2 GM in 0.9% Normal Saline 100 ML IV (09:45)
--- NOTE | 2018-07-25 11:41 | PCM.OPRPT ---
Report of Operation Date of Procedure: 07/25/18 Pre-Operative Diagnosis: Failed right knee unicompartmental knee replacement, aggressive osteoarthritis Post-Operative Diagnosis: Failed right knee unicompartmental knee replacement, aggressive osteoarthritis Surgery/Procedure Performed:: Revision total knee replacement entire tibia and femoral components Description of Surgical Findings:: Stable knee with good patella tracking digital media analyst: Vivian Bowers Type of Anesthesia:: General, Spinal Anesthesiologist: Asher Gomez Special Medications: 2 g Ancef, 1 g TXA at incision, 1 g TXA closure, 10 mg Decadron, joint cocktail (5 mg Duramorph, 30 mL of 0.5% Ropivicaine, 1000 units of epinephrine, 30 mg of Toradol) Specimen's removed: 3 separate specimens were sent to microbiology Estimated Blood Loss (mL): 75 Fluids Replaced: 1400 ml crystalloid Description of Procedure: Implants used: 1. Kimberly size 4 triathlon stabilized distal femoral component 2. Ivanhoe size 4 universal tibial baseplate with 12 x 50 mm stem, cemented 3. Kimberly X3 13 mm CS polyethylene 4. Ivanhoe X3 35 mm asymmetric patella Brief history operative indications: 68-year-old F with history of right unicompartmental knee replacement and progressive knee osteoarthritis with radiographic findings with loss of medial and patellofemoral joint spaceS, osteophyte formation and subchondral sclerosis. Failed conservative measures as mentioned in the H&P. Discussion of total knee arthroplasty as well as risk and benefits were discussed the patient including but not limited to blood loss, DVTs, PEs, neurovascular damage, general risk of anesthesia including loss of life, and stiffness or instability were discussed with patient. Patient demonstrated understanding and was able to sign informed consent. Procedure: On the date of procedure patient's right lower extremity was marked in the preoperative area. The patient was then taken back to the operating room where the patient was placed on the table in the supine position. All bony prominences were identified a well-padded. Anesthesia assumed control of the C-spine and airway and remained controlled throughout the remainder of the procedure. A tourniquet was placed on the right upper thigh and the leg was prepped in a sterile fashion. The surgeon then scrubbed at this time. Upon reentering the room the right lower extremity was draped in a standard orthopedic fashion. A timeout was then called and everyone agreed upon the side, the site, the procedure to be performed, patient's identity and antibiotics given. Esmarch bandage was used to exsanguinate the extremity and the tourniquet was placed up to 250 mmHg with the knee in flexion. A midline skin incision was made and sharp dissection was taken down through skin subcutaneous tissue and fat. The standard medial parapatellar incision was made and the patella was subluxed laterally. The standard deep MCL release was done and the fat pad was resected. Next our attention was directed to the femur. Navigation pins were placed, navigation was registered. Our attention was then directed towards the distal femur where the distal femoral component was removed using an osteotome to break up the bone cement interface. The distal femoral cutting block was pinned into place and 10 mm of distal femur resection was completed. The distal femoral cut was verified with navigation. The knee was then placed in deep flexion navigation points were used to place the appropriate rotation of the distal femoral cutting block. A size 4 4-in-1 cutting block was selected and pinned into place. The anterior cut was then made and checked for notching. The subsequent anterior chamfer cuts, posterior condylar cuts and posterior chamfer cuts were made while ensuring the MCL and LCL were protected. Our attention was then turned to the tibia where the tibial component was removed using an osteotome to break up the bone cement interface. FirstRain tibial cutting guide was used to make the appropriate tibial cut 90 degrees from the mechanical axis. Just below the lateral joint line where the previous lateral unit had been removed. Navigation was then used to verify the cut. A size 4 tibial base plate was selected. the knee was flexed to 90 degrees and the soft tissues and posterior osteophytes were removed from the joint. 40 cc of the periarticular injection was injected into the posterior medial corner of the joint. The knee was flexed and the box cutting guide was placed in the distal femur at the appropriate position and pinned into place. Saw and chisel were then used to make the box cut. The appropriate trials were then placed on the femur and tibia. A trial polyethylene was trialed to ensure proper balancing and stability of the knee. Patella tracking, was then verified and corrected appropriately as needed. The appropriate tibial internal rotation was then marked with a bovie. Our attention was then directed to the patella. The patella was everted and a flat resection was made. The lug holes were drilled and the patella trial was placed. Patellar tracking was checked and deemed appropriate. Once we were happy the femur and trial components were removed. the tibia was subluxed and pinned into place and the keel was punched and the canal was reamed, no reaming was done in preparation for the longer tibial stem. Tibial stem was used due to a small bone defect in the lateral tibial condyle. Final components were verified and opened, and cement was mixed in a vacuum. [employer] Simplex cement was used. The wound was copiously irrigated with normal saline. When the cement was ready the components were cemented into place starting with the tibia, femur and finally the patella. The trial poly component was placed and the knee was placed in full extension. All excess cement was removed in the process. Once the cement had cured the tracking, alignment and balance were verified and a size 13 mm polyethylene component was placed. Once the final components were placed the wound was copiously irrigated with normal saline solution and the periarticular injection was given. The wound was closed in a layer mendoza fashion using #1 vicryl interrupted sutures for the arthrotomy, 2-0 interrupted Vicryl suture for the subcuticular layer and steffen for final skin closure. A sterile compressive dressing was then placed. The patient was then awakened from anesthesia, transferred to the rsan antonio and transferred to the PACU for recovery. Post op plan DVT ppx: ASA 325mg, thigh high compression stockings Follow up: in office in 2 weeks for wound check PT: to start POD #0 at hospital, outpatient PT should be arranged. Grafts/Implants Used: Ivanhoe triathlon total knee - Complications None - Admit VTE Documentation VTE Present on Admission: No VTE Mechan Device Prophylaxis: SCD's, Thigh High JESSICA Hose VTE Pharm Prophylaxis ordered?: Yes
--- NOTE | 2018-07-25 12:42 | RAD_ITS ---
STUDY: X-RAY - RIGHT KNEE REASON FOR EXAM: Female, 68 years old. Total knee replacement. TECHNIQUE: 2 view(s) of the knee. COMPARISON: None. FINDINGS: Normal visualized distal femur. Normal visualized proximal tibia and fibula. Normal proximal tibiofibular articulation. The patient is status post total knee replacement. There is good alignment. Postoperative soft tissue changes. RAD/Knee 1 or 2 Views IMPRESSION: Status post total knee replacement. There is good alignment. Postoperative soft tissue changes. Electronically Signed: Fabian Chapman MD at 13:34 EDT Tel [phone], Service support ,
[2018-07-25] MEDS: Scopolamine 1mg/72hr Patch 1 PATCH TD (13:12)
[2018-07-25] MEDS: Aspirin 81 MG TAB.CHEW PO (16:55)
[2018-07-25] MEDS: Famotidine 20 MG Tablet PO (16:56)
[2018-07-25] MEDS: Cefazolin 1 GM/50 ML BAG IV (17:07)
[2018-07-25] MEDS: 0.9% NaCl Peripheral Flush Adult/Peds IV ×2 (19:51→23:13)
[2018-07-25] MEDS: Ondansetron 4 MG/2 ML Vial IV (19:51)
[2018-07-25] MEDS: Atorvastatin Calcium 40 MG Tablet PO (22:55)
[2018-07-25] MEDS: Senna/Docusate Sodium 1 Tablet 2 TABLET PO (22:55)
[2018-07-25] MEDS: Doxycycline 100 MG CAPSULE PO (22:56)
[2018-07-25] MEDS: Morphine 2 MG/ML Syringe IV (23:12)
[2018-07-25] MEDS: Lactated Ringers 1,000 ML 125 ML IV (23:12)
[2018-07-26] MEDS: Cefazolin 1 GM/50 ML BAG IV (01:40)
[2018-07-26] MEDS: Morphine 2 MG/ML Syringe IV (02:19)
[2018-07-26] MEDS: 0.9% NaCl Peripheral Flush Adult/Peds IV ×3 (02:20→22:36)
[2018-07-26 03:34] VITALS: BP 106/54; PULSE 72; RESP 16; TEMP 37.2; O2SAT 96
[2018-07-26] MEDS: Levothyroxine 100 MCG Tablet PO (05:37)
[2018-07-26] MEDS: Acetaminophen 500 MG Tablet 1000 MG PO ×3 (05:37→21:19)
[2018-07-26] MEDS: oxyCODONE 5 MG Tablet PO ×2 (05:49→11:14)
[2018-07-26 06:30] LABS: Hematocrit 32.4 % (37-47); Hemoglobin 10.3 g/dl (12.0-15.0); Mean Corp Hgb Conc 31.8 g/gl (32-36); Mean Corpuscular Hgb 28.5 pg (27.0-32.0); Mean Corpuscular Volume 89.5 fL (81-99); Mean Platelet Vol. 11.2 fl (6.2-12.0); Platelet Count 220 K/mm3 (150-450); RBC Distribution Width CV 13.6 % (11.6-14.6); RBC Distribution Width SD 43.2 fl (35.1-43.9); Red Blood Count 3.62 M/mm3 (4.2-5.4); White Blood Count 11.5 K/mm3 (4.4-11.0)
[2018-07-26 06:31] LABS: Scan Indicated on CBC? Y/N NO
[2018-07-26 06:47] LABS: Anion Gap 7 (5-15); BUN 12 mg/dL (7-18); BUN/Creat Ratio 14.5 RATIO (10-20); Calcium,Total 8.3 mg/dL (8.5-10.1); Chloride 103 mmol/L (98-107); Creatinine, Serum 0.83 mg/dL (0.55-1.02); EST Glomerular Filtration Rate 74 mL/min (>60); Est Glom Filt Rate - Afr Amer 89 mL/min (>60); Estimated Creatinine Clearance 55.15 ml/min; Glucose 105 mg/dL (74-106); Potassium 3.6 mmol/L (3.5-5.1); Sodium Level 138 mmol/L (136-145)
[2018-07-26] MEDS: Citalopram 20 MG Tablet PO (08:11)
[2018-07-26] MEDS: Senna/Docusate Sodium 1 Tablet 2 TABLET PO ×2 (08:11→21:19)
[2018-07-26] MEDS: Doxycycline 100 MG CAPSULE PO ×2 (08:12→21:20)
[2018-07-26] MEDS: Meloxicam 7.5 MG Tablet PO ×2 (08:12→21:20)
[2018-07-26] MEDS: Losartan Potassium 100 MG Tablet PO (08:12)
[2018-07-26] MEDS: Aspirin 81 MG TAB.CHEW PO ×2 (08:12→16:55)
[2018-07-26] MEDS: Famotidine 20 MG Tablet PO (08:12)
[2018-07-26 08:15] VITALS: BP 101/43; PULSE 70; RESP 16; TEMP 37.2; O2SAT 93
[2018-07-26] MEDS: Pantoprazole Sodium 40 MG Tablet PO (08:20)
[2018-07-26 08:35] VITALS: O2SAT 93
--- NOTE | 2018-07-26 09:25 | PN.ORTHO_ITS ---
Subjective: The patient was sitting in bed upon examination. Patient denies any chest pain, shortness of breath, dizziness, lightheadedness, nausea or vomiting, or calf pain. Pain is controlled on medications. Patient states she has had increased pain when she is up moving and weightbearing on the right knee. Patient also had some vomiting yesterday but this has resolved today. No adverse overnight events. Plan is for discharge home when ready. Due to patient's pain she will stay additional night and plan will be for discharge home tomorrow. Objective: Vital signs stable and afebrile. Patient is able to plantarflex and dorsiflex actively. Sensation is intact to light touch to saphenous, sural, superficial and deep pe roneal, and tibial distribution. Dressing is clean dry and intact. Negative Homans bilaterally, negative signs and symptoms of DVT. - Physical Exam General: Alert, Oriented x3, Cooperative, No apparent distress Vital Signs Temp Pulse Resp BP Pulse Ox 98.9 F 70 16 101/43 L 93 07/26/18 08:15 07/26/18 08:15 07/26/18 08:15 07/26/18 08:15 07/26/18 08:35 Oxygen Flow Rate (L/min) 2 Oxygen Delivery Method Room Air Weight: 103 kg Body Mass Index (BMI) 40.2 Intake and Output for Last 24 Hours 07/24/18 07/25/18 07/26/18 23:59 23:59 23:59 Intake Total 1773 / 1773 785 / 785 Output Total 200 / 200 Balance 1573 / 1573 785 / 785 Microbiology Past 72 Hours 07/25/18 11:10 Gram Stain - Final Incision/Surgical Site Laboratory Tests Past 24 Hrs 07/26/18 07/26/18 05:50 05:50 WBC 11.5 H RBC 3.62 L Hgb 10.3 L Hct 32.4 L MCV 89.5 MCH 28.5 MCHC 31.8 L RDW 13.6 RDW Differential 43.2 Plt Count 220 MPV 11.2 Sodium 138 Potassium 3.6 Chloride 103 Carbon Dioxide 28.0 Anion Gap 7 BUN 12 Creatinine 0.83 Estim Creat Clear Calc 55.15 Est GFR (MDRD) Af Amer 89 Est GFR (MDRD) Non-Af 74 BUN/Creatinine Ratio 14.5 Glucose 105 Calcium 8.3 L Medical Necessity - Tobacco Use Smoking Status: Never smoker Assessment/Plan All Active Problems (Last Updated 01/31/18 @ 09:07 by Andrade Lindo) Elevated serum creatinine (Acute) Dehydration (Acute) 1. S/P revision total knee arthroplasty entire tibia and femoral components from previous unicompartmental knee replacement POD #1 2. Continue Pain Medications: Tylenol and OxyIR 3. DVT Prophylaxis: Aspirin 81 mg BID with food times 4 weeks 4. PT/OT: Weightbearing as tolerated 5. H & H: 10.3/32.4, asymptomatic 6. Leukocytosis: Currently 11.5, afebrile. Patient did receive Decadron intraoperatively. 7. Encouraged Incentive Spirometry 8. Continue antibiotics while following cultures: currently patient is on doxycycline for 1 week postoperatively 9. Disposition: Plan will be for possible discharge home tomorrow. Patient has been having some difficulty with pain today. If pain continues to plan will be for additional pain medication consisting of MS Contin. Nursing staff will call us if pain is increased.
--- NOTE | 2018-07-26 10:25 | CASEMGMT ---
Addendum entered by Allyssa Fitch 07/26/18 14:42: Pt stated she may be interested in [facility], but wants to talk with her son first. Given Advanced Directives information packet and instructed pt to tell staff if she would like to talk with SW about any questions or completing paperwork for it. Original Note: SEE CHANELLE ADEN ASSESS LINK: D/C PLAN: Home w/[facility] PT/OT. CHANELLE ADEN Face to Face with patient for initial transition planning/care coordination assessment. CHANELLE ADEN introduced self and role at [facility]. Patient resting in bed, alert and oriented. Patient willing to participate in assessment and is able to answer all questions appropriately. Care providers, pharmacy, and demographics verified. Lives w/son, Abdiaziz, and VICTORINO who assisted w/meals prior to admission and who are going to be assisting with care upon return home from hospital. Pt lives in finished basement of their 2 story home, with 12 steps going into basement. Plan is for 1st-floor set up upon return to home until she is able to navigate stairs to basement. Pt wishes to discharge home and requests for [facility]. Pt states has no further needs or concerns at this time. CM to follow for discharge planning needs that may arise. -Pt requests for [facility]. Referral made to MARTA Lindsay, @ [facility]. Aware anticipated d/c is tomorrow 07/27. Buddy PAZ RN, CM
[2018-07-26 14:35] VITALS: BP 143/57; PULSE 65; RESP 16; TEMP 36.9; O2SAT 93
[2018-07-26 21:14] VITALS: BP 121/50; PULSE 86; RESP 16; TEMP 37.7; O2SAT 93
[2018-07-26] MEDS: Atorvastatin Calcium 40 MG Tablet PO (21:19)
[2018-07-26] MEDS: Ondansetron 4 MG/2 ML Vial IV (22:36)
--- NOTE | 2018-07-26 22:43 | NURSING ---
Notified HARSH Cho, that patient is requiring 2L of O2.
[2018-07-27 03:17] VITALS: BP 110/55; PULSE 75; RESP 16; TEMP 37.2; O2SAT 94
[2018-07-27] MEDS: Acetaminophen 500 MG Tablet 1000 MG PO ×2 (05:21→14:12)
[2018-07-27] MEDS: Levothyroxine 100 MCG Tablet PO (05:21)
[2018-07-27 06:29] LABS: Hematocrit 29.7 % (37-47); Hemoglobin 9.5 g/dl (12.0-15.0); Mean Corpuscular Hgb 28.5 pg (27.0-32.0); Mean Corpuscular Volume 89.2 fL (81-99); Mean Platelet Vol. 11.4 fl (6.2-12.0); Platelet Count 193 K/mm3 (150-450); RBC Distribution Width CV 13.5 % (11.6-14.6); RBC Distribution Width SD 42.9 fl (35.1-43.9); Red Blood Count 3.33 M/mm3 (4.2-5.4); White Blood Count 9.6 K/mm3 (4.4-11.0)
[2018-07-27 06:32] LABS: Scan Indicated on CBC? Y/N NO
[2018-07-27 07:30] VITALS: O2SAT 95
[2018-07-27 08:00] VITALS: BP 139/66; PULSE 74; RESP 18; TEMP 36.9; O2SAT 93
[2018-07-27] MEDS: Losartan Potassium 100 MG Tablet PO (08:02)
[2018-07-27] MEDS: Meloxicam 7.5 MG Tablet PO (08:02)
[2018-07-27] MEDS: Citalopram 20 MG Tablet PO (08:03)
[2018-07-27] MEDS: Doxycycline 100 MG CAPSULE PO (08:03)
[2018-07-27] MEDS: Senna/Docusate Sodium 1 Tablet 2 TABLET PO (08:03)
[2018-07-27] MEDS: Aspirin 81 MG TAB.CHEW PO ×2 (08:03→18:17)
[2018-07-27] MEDS: Famotidine 20 MG Tablet PO (08:04)
--- NOTE | 2018-07-27 08:20 | PCM.PN.ORT ---
Subjective: Patient walking down the hallway with therapy. Patient doing very well. Pain well managed. Denies chest pain, shortness breath, calf pain, nausea vomiting. Patient states she is ready for discharge home Objective: Dressings clean dry intact, negative signs and symptoms of DVT. Vital signs labs within normal limits. Patient is afebrile neurovascular is otherwise intact. - Physical Exam General: Alert, Oriented x3, Cooperative HEENT: PERRLA Oral: Moist Mucosa Neurological: Cranial nerves II-XII grossly intact Psych/Mental Status: Normal Affect, Alert and oriented to time, place, person, mood and affect Vital Signs Temp Pulse Resp BP Pulse Ox 98.5 F 74 18 139/66 H 93 07/27/18 08:00 07/27/18 08:00 07/27/18 08:00 07/27/18 08:00 07/27/18 08:00 Oxygen Flow Rate (L/min) 2 Oxygen Delivery Method Room Air Weight: 103 kg Body Mass Index (BMI) 40.2 Intake and Output for Last 24 Hours 07/25/18 07/26/18 07/27/18 23:59 23:59 23:59 Intake Total 1773 / 1773 1485 / 1485 500 / 500 Output Total 200 / 200 Balance 1573 / 1573 1485 / 1485 500 / 500 Microbiology Past 72 Hours 07/25/18 11:10 Gram Stain - Final Tissue - Knee Wound Culture - Preliminary No growth-Final to follow Anaerobic Culture - Preliminary No growth in 48 hours. 07/25/18 11:10 Gram Stain - Final Incision/Surgical Site Wound Culture - Preliminary No growth-Final to follow Anaerobic Culture - Preliminary No growth in 48 hours. 07/25/18 11:10 Gram Stain - Final Biopsy - Other Wound Culture - Preliminary No growth-Final to follow Anaerobic Culture - Preliminary No growth in 48 hours. Laboratory Tests Past 24 Hrs 07/27/18 05:20 WBC 9.6 RBC 3.33 L Hgb 9.5 L Hct 29.7 L MCV 89.2 MCH 28.5 MCHC 32.0 RDW 13.5 RDW Differential 42.9 Plt Count 193 MPV 11.4 Medical Necessity - Tobacco Use Smoking Status: Never smoker Assessment/Plan All Active Problems (Last Updated 01/31/18 @ 09:07 by Andrade Lindo) Elevated serum creatinine (Acute) Dehydration (Acute) Status post revision unicompartmental knee to right total knee Plan 1. Continue all pain medication as prescribed 2. Continue physical therapy outpatient with home therapy 3. Continue all medications as prescribed. Aspirin 81 mg as prescribed for postop DVT prophylaxis 4. Follow-up as scheduled with Dr. Sellers 5. Discharge home today
--- NOTE | 2018-07-27 08:32 | DCINST_ITS ---
Discharge Diet: No Restrictions Discharge Activity: May Not Drive, May Shower, Use Walker May shower in (days): 1 Ice area for (Minutes): 20 - each hour while awake. Weight Bearing Status: Weight bearing as tolerated Elevate: Operative Extremity Additional Activity Instructions:: Wear elastic stockings for 2 weeks after your surgery. Call your doctor if your incision/area has: Continuous Slow Oozing, Sudden Increased Bleeding, Increased Pain/ Swelling, Increased Redness, Foul Smelling Discharge Call your doctor if you observe: Fever of 101 or Higher, Coldness, Increased Pain - in extremity, Numbness or Tingling, Change in Color, Calf discomfort, Uncontrolled pain Change Dressing in (Days):: 0 - and daily as needed. Remove Dressing in (days):: 8 Cleanse incision/area with: Soap & Water Allergies/Adverse Reactions: Allergies bee venom protein (honey bee) Allergy (Verified 07/25/18 08:45) Anaphylaxis levofloxacin [From Levaquin] Allergy (Verified 07/25/18 08:45) Hives phenobarbital Allergy (Verified 07/25/18 08:45) Unknown Latex, Natural Rubber Adverse Reaction (Verified 07/25/18 08:45) Other Medications to take at Discharge Atorvastatin Calcium 40 mg PO QHS 09/09/17 Cholecalciferol (Vitamin D3) [Vitamin D3] 2,000 unit PO DAILY 09/09/17 Levothyroxine [Synthroid] 100 mcg PO DAILY 09/09/17 Losartan Potassium [Cozaar] 100 mg PO DAILY 09/09/17 Citalopram Hydrobromide [Celexa] 20 mg PO DAILY 05/16/18 Pantoprazole Sodium [Protonix] 40 mg PO DAILY PRN 05/16/18 Acetaminophen [Tylenol] 1,000 mg PO Q8 #90 tab 07/27/18 Aspirin [Aspirin, Baby] 81 mg PO BIDCM #60 tab.chew 07/27/18 Doxycycline 100 mg PO BID #14 cap 07/27/18 Oxycodone [Oxyir] 5 - 10 mg PO Q4H PRN PRN 7 Days #84 tab 07/27/18 Senna/Docusate Sodium [Senokot-S] 2 tab PO BID #20 tab 07/27/18 The following prescriptions were given: Oxycodone [Oxyir] 5 - 10 mg PO Q4H PRN PRN 7 Days #84 tab PRN Reason: Mod-Severe Pain (4-08/08) Acetaminophen [Tylenol] 1,000 mg PO Q8 #90 tab Aspirin [Aspirin, Baby] 81 mg PO BIDCM #60 tab.chew Doxycycline 100 mg PO BID #14 cap Senna/Docusate Sodium [Senokot-S] 2 tab PO BID #20 tab Primary Care Physician: Giovanny Felder MD [Primary Care Provider] - Test Results: Test results from this visit will be discussed in further detail at your follow- up appointment, if applicable. Please Follow Up With: Augusto Sellers MD When: as scheduled (see pink sheet)
--- NOTE | 2018-07-27 09:39 | CASEMGMT ---
CHANELLE ADEN NOTE: Call to Mica @ [facility] and notified her pt will be discharged today. Mica states start of care will be 07/28 or 07/29. Pt made aware. Buddy PAZ RN CM
[2018-07-27 14:11] VITALS: BP 133/63; PULSE 72; RESP 16; TEMP 36.8; O2SAT 95
[2018-07-27] MEDS: oxyCODONE 5 MG Tablet PO (18:17)
[2018-07-27 18:27] VITALS: BP 138/56; PULSE 80; RESP 18; TEMP 36.7; O2SAT 96
== END 2018-07-27 18:31 | disposition home health service (06) | DRG 468 ==
LOC: MS3 08:15
PROVIDERS: Admitting Provider Specialist; Family Provider Family Medicine; PCP Family Medicine; Visit Provider Specialist
PROC: 0SPC0JZ Removal of Synthetic Substitute from Right Knee Joint, Open Approach (ICD-10-PCS; CPT 27447; principal; 2018-07-25 10:00)
DX: T84.092A Other mechanical complication of internal right knee prosthesis, initial encounter (principal); M17.11 Unilateral primary osteoarthritis, right knee; I10 Essential (primary) hypertension; Z23 Encounter for immunization
CPT/HCPCS: 36415; 73560; 80048; 85025; 85027; 87015; 87070; 87075; 87081; 87102; 87116; 87205; 87206; 97110; 97162; 97165; 97530; 99251; C1776; J7120; 90686; A4216; G0463; J2405

== ENCOUNTER → 2018-08-06 14:41 | Outpatient (CLI) | payer MEDICARE, SELFPAY ==
[2018-08-06 15:40] LABS: Absolute Lymphocyte Count 1.65 X10^3/ul (0.83-4.51); Absolute Neutrophil Count 6.3 X10^3/uL (2.0-7.7); Basophil# 0.02 X10^3/uL; Basophil% 0.2 % (0-1); Eosinophil# 0.25 X10^3/uL; Eosinophils% 2.8 % (0-5); Hematocrit 34.5 % (37-47); Hemoglobin 10.8 g/dl (12.0-15.0); Immature Platelet Fraction 1.6 % (1.0-7.9); Lymphocyte # 1.65 X10^3/ul (4.0); Lymphocyte % 18.7 % (19-41); Mean Corp Hgb Conc 31.3 g/gl (32-36); Mean Corpuscular Hgb 27.6 pg (27.0-32.0); Monocyte# 0.63 X10^3/uL; Monocyte% 7.1 % (0-10); Neutrophil # 6.25 X10^3/uL (2.7-7.7); Platelet Count 387 K/mm3 (150-450); RBC Distribution Width CV 14.3 % (11.6-14.6); RBC Distribution Width SD 45.8 fl (35.1-43.9); RET-HE 29.5 pg (30-35); Red Blood Count 3.92 M/mm3 (4.2-5.4); Reticulocyte Count 1.94 % (0.5-1.5); White Blood Count 8.8 K/mm3 (4.4-11.0)
[2018-08-06 15:41] LABS: POSITIVE COUNT NO; POSITIVE DIFFERENTIAL NO; POSITIVE MORPHOLOGY NO
[2018-08-06 15:58] LABS: Iron 39 ug/dL (50-170); Iron Binding Capacity,Total 278 ug/dL (250-450)
== END ==
PROVIDERS: Family Provider Family Medicine; PCP Family Medicine; Visit Provider Family Medicine
DX: D64.9 Anemia, unspecified (principal)
CPT/HCPCS: 36415; 83540; 83550; 85025; 85045

== ENCOUNTER → 2018-09-28 10:03 | Outpatient (CLI) | payer MEDICARE, SELFPAY ==
[2018-09-28 14:30] LABS: Absolute Lymphocyte Count 1.17 X10^3/ul (0.83-4.51); Absolute Neutrophil Count 3.1 X10^3/uL (2.0-7.7); Basophil# 0.03 X10^3/uL; Basophil% 0.6 % (0-1); Eosinophil# 0.16 X10^3/uL; Eosinophils% 3.2 % (0-5); Hematocrit 39.5 % (37-47); Hemoglobin 12.4 g/dl (12.0-15.0); Lymphocyte # 1.17 X10^3/ul (4.0); Lymphocyte % 23.6 % (19-41); Mean Corp Hgb Conc 31.4 g/gl (32-36); Mean Corpuscular Hgb 27.7 pg (27.0-32.0); Mean Corpuscular Volume 88.4 fL (81-99); Mean Platelet Vol. 11.6 fl (6.2-12.0); Monocyte# 0.45 X10^3/uL; Monocyte% 9.1 % (0-10); Neutrophil # 3.14 X10^3/uL (2.7-7.7); Neutrophil % 63.3 % (47-70); Platelet Count 259 K/mm3 (150-450); RBC Distribution Width CV 14.3 % (11.6-14.6); RBC Distribution Width SD 45.6 fl (35.1-43.9); Red Blood Count 4.47 M/mm3 (4.2-5.4)
[2018-09-28 14:31] LABS: POSITIVE COUNT NO; POSITIVE DIFFERENTIAL NO; POSITIVE MORPHOLOGY NO
[2018-09-28 14:42] LABS: Vitamin D,25 Hydroxy 21.7 ng/mL (29.95-100.01)
[2018-09-28 14:47] LABS: ALB/GLOB Ratio 1.2 RATIO (0.9-2.4); AST(SGOT) 19 U/L (15-37); Alanine Aminotransfer ALT/SGPT 18 U/L (13-56); Albumin, Serum 3.8 g/dL (3.2-5.0); Alkaline Phosphatase 106 U/L (45-117); Anion Gap 8 (5-15); BUN 13 mg/dL (7-18); Calcium,Total 8.9 mg/dL (8.5-10.1); Chloride 104 mmol/L (98-107); Cholesterol 206 mg/dL (200); Creatinine, Serum 0.68 mg/dL (0.55-1.02); EST Glomerular Filtration Rate 91 mL/min (>60); Est Glom Filt Rate - Afr Amer 110 mL/min (>60); Globulin 3.2 g/dL (2.2-4.2); Glucose 87 mg/dL (74-106); High Density Lipoprotein 59 mg/dL; Potassium 4.2 mmol/L (3.5-5.1); Sodium Level 141 mmol/L (136-145); Thyroid Stim Hormone (TSH) 2.08 uIU/mL (0.358-3.74); Triglycerides 195 mg/dL; Very Low Density Lipoprotein 39 mg/dL (5-40)
--- OUTSIDE RECORDS SUMMARY | 2018-11-23 05:11 | XMS RPT_ITS ---
:1950 Author Organization [facility] Care Team Providers Name Role Phone Augusto Sellers Attending Unavailable Augusto Sellers Referring Unavailable Giovanny Felder Primary Care Unavailable Augusto Sellers Admitting Unavailable Augusto Sellers Attending Unavailable Augusto Sellers Referring Unavailable Giovanny Felder Primary Care Unavailable Giovanny Felder Attending Unavailable Giovanny Felder Primary Care Unavailable Augusto Sellers Attending Unavailable Giovanny Felder Primary Care Unavailable Augusto Sellers Admitting Unavailable Augusto Sellers Attending Unavailable Augusto Sellers Referring Unavailable Giovanny Felder Primary Care Unavailable Giovanny Felder Attending Unavailable Emerita, Giovanny Primary Care Unavailable Giovanny Felder Attending Unavailable Felder, Giovanny Primary Care Unavailable Isauro Asif Attending Unavailable Felder, Giovanny Referring Unavailable Felder, Giovanny Primary Care Unavailable Felder, Giovanny Attending Unavailable Felder, Giovanny Primary Care Unavailable PROBLEMS PROBLEMS DATE TYPE CONDITION / CODE ATTENDING STATUS SOURCE 08/15/2018 Unknown T84.092A - Other Augusto Sellers [place] mechanical Community complication of Hospital internal right knee Repository prosthesis, initial encounter / T84.092A(ICD-10) 08/15/2018 Unknown G89.18 - Other acute Augusto Sellers Active [place] postprocedural pain Community / G89.18(ICD-10) Hospital Repository 07/16/2018 Unknown Z01.812 - Encounter Augusto Sellers Active [place] for preprocedural Community laboratory Hospital examination / Repository Z01.812(ICD-10) 08/09/2018 Unknown M17.12 - Unilateral Augusto Sellers Active [place] primary Community osteoarthritis, left Hospital knee / Repository M17.12(ICD-10) 05/11/2018 Unknown Z01.818 - Encounter Giovanny Felder Active [place] for other Community preprocedural Hospital examination / Repository Z01.818(ICD-10) 05/03/2018 Unknown M25.561 - Pain in Augusto Sellers Active [place] right knee / Community M25.561(ICD-10) Hospital Repository 02/26/2018 Unknown I10 - Essential Giovanny Felder Active [place] (primary) Community hypertension / Hospital I10(ICD-10) Repository 02/26/2018 Unknown E03.9 - FelderGiovanny arthur Active [place] Hypothyroidism, Community unspecified / Hospital E03.9(ICD-10) Repository 01/31/2018 Unknown M25.569 - Pain in Isauro Asif Active [place] unspecified knee / Community M25.569(ICD-10) Hospital Repository 01/31/2018 Unknown M25.562 - Pain in Isauro Asif Active [place] left knee / Community M25.562(ICD-10) Hospital Repository PROCEDURES PROCEDURES No Procedure Records FoundRESULTS RESULTS CBC W/DIFF, AUTOMATED Collected: 09/28/2018 Status: F Source: [facility] TYPE CODE TESTS RESULT OUT OF RANGE REFERENCE UNITS LAB L100.1000 4.4-11.0 K/mm3 Normal WBC 5.0 LAB L100.1200 4.2-5.4 M/mm3 Normal RBC 4.47 LAB L100.1300 12.0-15.0 g/dl Normal HGB 12.4 LAB L100.1400 37-47 % Normal HCT 39.5 LAB L100.1500 81-99 fL Normal MCV 88.4 LAB L100.1600 27.0-32.0 pg Normal MCH 27.7 LAB L100.1700 32-36 g/gl Low MCHC 31.4 LAB L100.1810 11.6-14.6 % Normal RDW CV 14.3 LAB L100.1820 35.1-43.9 fl High RDW SD 45.6 LAB L100.1900 150-450 K/mm3 Normal PLT 259 LAB L100.2000 6.2-12.0 fl Normal MPV 11.6 LAB L100.2100 47-70 % Normal NEUT% 63.3 LAB L100.2200 19-41 % Normal LY% 23.6 LAB L100.2300 0-10 % Normal MONO% 9.1 LAB L100.2400 0-5 % Normal EO% 3.2 LAB L100.2500 0-1 % Normal BASO% 0.6 LAB L100.2550 0.0-0.9 % Normal IM GRAN % 0.200 Result Comment: IG% - Immature Granulocytes (promyelocytes, myelocytes and metamyelocytes) > 1% indicates that a LEFT SHIFT is Present. LAB L100.2620 2.0-7.7 X10 3/uL Normal Absolute Neut 3.1 LAB L100.2720 0.83-4.51 X10 3/ul Normal Absolute Lymph 1.17 Performed By: #### L100.0100 #### [facility] [address] [place], [place], [address] VITAMIN D,25 HYDROXY Collected: 09/28/2018 Status: F Source: [place] 10:04 AM [facility] REPOSITORY TYPE CODE TESTS RESULT OUT OF REFERENCE UNITS RANGE LAB L506.1000 29.95-100.01 ng/mL Low Vitamin D 21.7 25-OH Result Comment: Vitamin D 25(OH) Status Range Deficiency <20 ng/mL (50nmol/L) Insuffciency 20 - 30 ng/mL (50 - 75 nmol/L) Sufficiency 30 - 100 ng/mL (75 - 250 nmol/L) Toxicity >100 ng/mL (>250 nmol/L) Performed By: #### L506.1000 #### [facility] [address] [place], [address] COMPREHENSIVE METABOLIC Collected: 09/28/2018 Status: F Source: [facility] 10:04 AM [facility] REPOSITORY TYPE CODE TESTS RESULT OUT OF RANGE REFERENCE UNITS LAB L501.0100 74-106 mg/dL Normal GLU 87 Result Comment: Please note revised GLUCOSE reference range effective 2017. LAB L501.1000 7-18 mg/dL Normal BUN 13 LAB L501.1100 0.55-1.02 mg/dL Normal CREAT,SERUM 0.68 Result Comment: The validity of the calculated GFR AND GFRAA in patients over 70 years has not been determined. Clinical correlation is essential. LAB L501.1110 >60 mL/min Normal EST GFR 91 Result Comment: Non- GFR Calc LAB L501.1115 >60 mL/min Normal EST GFR - AA 110 Result Comment: GFR Calc LAB L501.1300 10-20 RATIO Normal BUN/CRE 19.0 LAB L501.1500 6.4-8.2 g/dL T Normal PROT 7.0 LAB L501.1800 3.2-5.0 g/dL Normal ALB 3.8 LAB L501.1950 2.2-4.2 g/dL Normal GLOB 3.2 LAB L501.2000 0.9-2.4 RATIO Normal A/G 1.2 LAB L501.2200 8.5-10.1 mg/dL CA Normal 8.9 LAB L501.4100 15-37 U/L Normal AST 19 LAB L501.4305 45-117 U/L Normal ALK P 106 LAB L501.4405 13-56 U/L Normal ALT 18 LAB L501.4600 0.20-1.00 mg/dL T Normal BILI 0.50 LAB L501.5300 136-145 mmol/L NA Normal 141 LAB L501.5600 3.5-5.1 mmol/L K Normal 4.2 LAB L501.5900 98-107 mmol/L CL Normal 104 LAB L501.6100 21.0-32.0 mmol/L Normal CO2 29.0 LAB L501.6200 5-15 Normal GAP 8 Performed By: #### L500.4050, L500.4100, L501.9520 #### [facility] [address] [facility] [address] [place], [place], [address] LIPID PROFILE Collected: 09/28/2018 Status: F Source: [place] 10:04 AM [facility] REPOSITORY TYPE CODE TESTS RESULT OUT OF RANGE REFERENCE UNITS LAB L501.4900 200 mg/dL High CHOL 206 Result Comment: <200 mg/dL Desirable 200-240 mg/dL Borderline >240 mg/dL High Risk LAB L501.5000 mg/dL Normal TRIG 195 Result Comment: The drugs N-Acetylcysteine and Metamizole may falsely depress this assay. Serum Triglycerides Reference Interval Normal <150 mg/dL Borderline high 150 - 199 mg/dL High 200 - 499 mg/dL Very High > or = 500 mg/dL LAB L501.6400 mg/dL Normal HDL 59 Result Comment: The drugs N-Acetylcysteine and Metamizole may falsely depress this assay. Reference Range HDL <40 mg/dL Low HDL Cholesterol HDL >or= 60 mg/dL High HDL Cholesterol LAB L501.6500 0-130 mg/dL Normal LDL 108 LAB L501.6600 5-40 mg/dL Normal VLDL 39 Performed By: #### L500.4050, L500.4100, L501.9520 #### [facility] [address] [facility] [address] [place], [place], [id number] THYROID STIM HORMONE Collected: 09/28/2018 Status: F Source: [place] (TSH) 10:04 AM [facility] REPOSITORY TYPE CODE TESTS RESULT OUT OF RANGE REFERENCE UNITS LAB L501.9520 0.358-3.74 uIU/mL Normal TSH 2.08 Performed By: #### L500.4050, L500.4100, L501.9520 #### [facility] [address] [facility] [address] [place], [place], [id number] CBC W/DIFF, AUTOMATED Collected: 08/06/2018 Status: F Source: [place] 2:43 PM [facility] REPOSITORY TYPE CODE TESTS RESULT OUT OF RANGE REFERENCE UNITS LAB L100.1000 4.4-11.0 K/mm3 Normal WBC 8.8 LAB L100.1200 4.2-5.4 M/mm3 Low RBC 3.92 LAB L100.1300 12.0-15.0 g/dl Low HGB 10.8 LAB L100.1400 37-47 % Low HCT 34.5 LAB L100.1500 81-99 fL Normal MCV 88.0 LAB L100.1600 27.0-32.0 pg Normal MCH 27.6 LAB L100.1700 32-36 g/gl Low MCHC 31.3 LAB L100.1810 11.6-14.6 % Normal RDW CV 14.3 LAB L100.1820 35.1-43.9 fl High RDW SD 45.8 LAB L100.1900 150-450 K/mm3 Normal PLT 387 LAB L100.2000 6.2-12.0 fl Normal MPV 10.0 LAB L100.2100 47-70 % High NEUT% 71.0 LAB L100.2200 19-41 % Low LY% 18.7 LAB L100.2300 0-10 % Normal MONO% 7.1 LAB L100.2400 0-5 % Normal EO% 2.8 LAB L100.2500 0-1 % Normal BASO% 0.2 LAB L100.2550 0.0-0.9 % Normal IM GRAN % 0.200 Result Comment: IG% - Immature Granulocytes (promyelocytes, myelocytes and metamyelocytes) > 1% indicates that a LEFT SHIFT is Present. LAB L100.2620 2.0-7.7 X10 3/uL Normal Absolute Neut 6.3 LAB L100.2720 0.83-4.51 X10 3/ul Normal Absolute Lymph 1.65 Performed By: #### L100.0100, L100.9950 #### [facility] [address] [place], [place], [address] RETIC PANEL Collected: 08/06/2018 Status: F Source: [place] 2:43 PM [facility] REPOSITORY TYPE CODE TESTS RESULT OUT OF RANGE REFERENCE UNITS LAB L101.0000 0.5-1.5 % High RETIC 1.94 LAB L101.0060 3.00-15.90 % IM Normal RET FRACTION 9.40 LAB L101.0090 30-35 pg Low RET-HE 29.5 LAB L101.0110 1.0-7.9 % Normal IPF 1.6 Result Comment: Low PLT + Low IPF suggest a bone marrow production disorder Low PLT + high IPF suggests peripheral destruction (e.g.ITP, TTP, HIT, DIC, autoimmune) or bone marrow recovery Trending of serial IPF measurements is recommended when evaluating for bone marrow respones Value above normal range indicates an increase in RBC cellular response from bone marrow. Performed By: #### L100.0100, L100.9950 #### [facility] [address] [facility] [place], [address] IRON BINDING Collected: 08/06/2018 Status: F Source: [place] CAPACITY,TOTAL 2:43 PM [facility] REPOSITORY TYPE CODE TESTS RESULT OUT OF RANGE REFERENCE UNITS LAB L503.6075 250-450 ug/dL Normal TIBC 278 Performed By: #### L503.6075, L503.6150 #### [facility] [address] [facility] [place], [address] IRON Collected: 08/06/2018 Status: F Source: [place] 2:43 PM [facility] REPOSITORY TYPE CODE TESTS RESULT OUT OF RANGE REFERENCE UNITS LAB L503.6150 50-170 ug/dL Low IRON 39 Performed By: #### L503.6075, L503.6150 #### [facility] [address] [facility] [place], [address] DISCHARGE INSTRUCTION Observed: 07/27/2018 Status: F Source: [place] 8:32 AM [facility] REPOSITORY [facility] Medical Records Department [address] [place] [address] Instructions for Home/Discharge Instructions 07/27/18 0831 MR#: [id number] Acct: [id number] Name: KELSEY WARD Juni Rep #: [id number] : 1950 68 From: Kevin Carlos PA-C PCP: Giovanny Felder MD Status: ADM IN Discharge Diet: No Restrictions Discharge Activity: May Not Drive, May Shower, Use Walker May shower in (days): 1 Ice area for (Minutes): 20 - each hour while awake. Weight Bearing Status: Weight bearing as tolerated Elevate: Operative Extremity Additional Activity Instructions:: Wear elastic stockings for 2 weeks after your surgery. Call your doctor if your incision/area has: Continuous Slow Oozing, Sudden Increased Bleeding, Increased Pain/ Swelling, Increased Redness, Foul Smelling Discharge Call your doctor if you observe: Fever of 101 or Higher, Coldness, Increased Pain - in extremity, Numbness or Tingling, Change in Color, Calf discomfort, Uncontrolled pain Change Dressing in (Days):: 0 - and daily as needed. Remove Dressing in (days):: 8 Cleanse incision/area with: Soap AND Water Allergies/Adverse Reactions: Allergies bee venom protein (honey bee) Allergy (Verified 07/25/18 08:45) Anaphylaxis levofloxacin [From Levaquin] Allergy (Verified 07/25/18 08:45) Hives phenobarbital Allergy (Verified 07/25/18 08:45) Unknown Latex, Natural Rubber Adverse Reaction (Verified 07/25/18 08:45) Other Medications to take at Discharge Atorvastatin Calcium 40 mg PO QHS 09/09/17 Cholecalciferol (Vitamin D3) [Vitamin D3] 2,000 unit PO DAILY 09/09/17 Levothyroxine [Synthroid] 100 mcg PO DAILY 09/09/17 Losartan Potassium [Cozaar] 100 mg PO DAILY 09/09/17 Citalopram Hydrobromide [Celexa] 20 mg PO DAILY 05/16/18 Pantoprazole Sodium [Protonix] 40 mg PO DAILY PRN 05/16/18 Acetaminophen [Tylenol] 1,000 mg PO Q8 #90 tab 07/27/18 Aspirin [Aspirin, Baby] 81 mg PO BIDCM #60 tab.chew 07/27/18 Doxycycline 100 mg PO BID #14 cap 07/27/18 Oxycodone [Oxyir] 5 - 10 mg PO Q4H PRN PRN 7 Days #84 tab 07/27/18 Senna/Docusate Sodium [Senokot-S] 2 tab PO BID #20 tab 07/27/18 The following prescriptions were given: Oxycodone [Oxyir] 5 - 10 mg PO Q4H PRN PRN 7 Days #84 tab PRN Reason: Mod-Severe Pain (4-10) Acetaminophen [Tylenol] 1,000 mg PO Q8 #90 tab Aspirin [Aspirin, Baby] 81 mg PO BIDCM #60 tab.chew Doxycycline 100 mg PO BID #14 cap Senna/Docusate Sodium [Senokot-S] 2 tab PO BID #20 tab Primary Care Physician: Giovanny Felder MD [Primary Care Provider] - Test Results: Test results from this visit will be discussed in further detail at your follow-up appointment, if applicable. Please Follow Up With: Augusto Sellers MD When: as scheduled (see pink sheet) 07/27/18 0832 <Electronically signed by Kevin Carlos PA-C> Date Kevin Carlos PA-C CC: Giovanny Felder MD CBC-COMPLETE BLOOD CNT Collected: 07/27/2018 Status: F Source: [place] NO DIFF 5:20 AM [facility] REPOSITORY TYPE CODE TESTS RESULT OUT OF RANGE REFERENCE UNITS LAB L100.1000 4.4-11.0 K/mm3 Normal WBC 9.6 LAB L100.1200 4.2-5.4 M/mm3 Low RBC 3.33 LAB L100.1300 12.0-15.0 g/dl Low HGB 9.5 LAB L100.1400 37-47 % Low HCT 29.7 LAB L100.1500 81-99 fL Normal MCV 89.2 LAB L100.1600 27.0-32.0 pg Normal MCH 28.5 LAB L100.1700 32-36 g/gl Normal MCHC 32.0 LAB L100.1810 11.6-14.6 % Normal RDW CV 13.5 LAB L100.1820 35.1-43.9 fl Normal RDW SD 42.9 LAB L100.1900 150-450 K/mm3 Normal PLT 193 LAB L100.2000 6.2-12.0 fl Normal MPV 11.4 Performed By: #### L100.0500 #### [facility] [address] [place], [address] CBC-COMPLETE BLOOD CNT Collected: 07/26/2018 Status: F Source: [place] NO DIFF 5:50 AM [facility] REPOSITORY TYPE CODE TESTS RESULT OUT OF RANGE REFERENCE UNITS LAB L100.1000 4.4-11.0 K/mm3 High WBC 11.5 LAB L100.1200 4.2-5.4 M/mm3 Low RBC 3.62 LAB L100.1300 12.0-15.0 g/dl Low HGB 10.3 LAB L100.1400 37-47 % Low HCT 32.4 LAB L100.1500 81-99 fL Normal MCV 89.5 LAB L100.1600 27.0-32.0 pg Normal MCH 28.5 LAB L100.1700 32-36 g/gl Low MCHC 31.8 LAB L100.1810 11.6-14.6 % Normal RDW CV 13.6 LAB L100.1820 35.1-43.9 fl Normal RDW SD 43.2 LAB L100.1900 150-450 K/mm3 Normal PLT 220 LAB L100.2000 6.2-12.0 fl Normal MPV 11.2 Performed By: #### L100.0500 #### [facility], [address] BASIC METABOLIC Collected: 07/26/2018 Status: F Source: [place] PROFILE ([facility]) 5:50 AM [facility] REPOSITORY TYPE CODE TESTS RESULT OUT OF RANGE REFERENCE UNITS LAB L501.0100 74-106 mg/dL Normal GLU 105 Result Comment: Fasting Glucose result from 100 to 125 mg/dL suggests IMPAIRED HOMEOSTASIS per A.D.A. criteria. Please note revised GLUCOSE reference range effective 2017. LAB L501.1000 7-18 mg/dL Normal BUN 12 LAB L501.1100 0.55-1.02 mg/dL Normal CREAT,SERUM 0.83 Result Comment: The validity of the calculated GFR AND GFRAA in patients over 70 years has not been determined. Clinical correlation is essential. LAB L501.1110 >60 mL/min Normal EST GFR 74 Result Comment: Non- GFR Calc LAB L501.1115 >60 mL/min Normal EST GFR - AA 89 Result Comment: GFR Calc LAB L501.1255 ml/min Normal Estimated CRCL 55.15 LAB L501.1300 10-20 RATIO Normal BUN/CRE 14.5 LAB L501.2200 8.5-10 mg/dL Low .1 CA 8.3 LAB L501.5300 136-14 mmol/L Normal 5 NA 138 LAB L501.5600 3.5-5. mmol/L Normal 1 K 3.6 LAB L501.5900 98-107 mmol/L Normal CL 103 LAB L501.6100 21.0-3 mmol/L Normal 2.0 CO2 28.0 LAB L501.6200 5-15 Normal GAP 7 Performed By: #### L500.2500 #### [facility] [address] [facility] [place], [address] OPERATIVE REPORT Observed: 07/25/2018 Status: F Source: [place] 11:57 AM [facility] REPOSITORY [facility] Medical Records Department [address] [place] [address] Operative Report 07/25/18 1141 MR#: [id number] Acct: [id number] Name: KELSEY WARD Rep #: [id number] : 1950 68 From: Augusto Sellers MD PCP: Giovanny Felder MD Status: ADM IN Location: [place] [id number] Report of Operation Date of Procedure: 07/25/18 Pre-Operative Diagnosis: Failed right knee unicompartmental knee replacement, aggressive osteoarthritis Post-Operative Diagnosis: Failed right knee unicompartmental knee replacement, aggressive osteoarthritis Surgery/Procedure Performed:: Revision total knee replacement entire tibia and femoral components Description of Surgical Findings:: Stable knee with good patella tracking computer installation engineer: Vivian Bowers Type of Anesthesia:: General, Spinal Anesthesiologist: Asher Gomez Special Medications: 2 g Ancef, 1 g TXA at incision, 1 g TXA closure, 10 mg Decadron, joint cocktail (5 mg Duramorph, 30 mL of 0.5% Ropivicaine, 1000 units of epinephrine, 30 mg of Toradol) Specimen's removed: 3 separate specimens were sent to microbiology Estimated Blood Loss (mL): 75 Fluids Replaced: 1400 ml crystalloid Description of Procedure: Implants used: 1. [place] size 4 triathlon stabilized distal femoral component 2. Kimberly size 4 universal tibial baseplate with 12 x 50 mm stem, cemented 3. Kimberly X3 13 mm CS polyethylene 4. Kimberly X3 35 mm asymmetric patella Brief history operative indications: 68-year-old F with history of right unicompartmental knee replacement and progressive knee osteoarthritis with radiographic findings with loss of medial and patellofemoral joint spaceS, osteophyte formation and subchondral sclerosis. Failed conservative measures as mentioned in the H AND P. Discussion of total knee arthroplasty as well as risk and benefits were discussed the patient including but not limited to blood loss, DVTs, PEs, neurovascular damage, general risk of anesthesia including loss of life, and stiffness or instability were discussed with patient. Patient demonstrated understanding and was able to sign informed consent. Procedure: On the date of procedure patient's right lower extremity was marked in the preoperative area. The patient was then taken back to the operating room where the patient was placed on the table in the supine position. All bony prominences were identified a well-padded. Anesthesia assumed control of the C-spine and airway and remained controlled throughout the remainder of the procedure. A tourniquet was placed on the right upper thigh and the leg was prepped in a sterile fashion. The surgeon then scrubbed at this time. Upon reentering the room the right lower extremity was draped in a standard orthopedic fashion. A timeout was then called and everyone agreed upon the side, the site, the procedure to be performed, patient's identity and antibiotics given. Esmarch bandage was used to exsanguinate the extremity and the tourniquet was placed up to 250 mmHg with the knee in flexion. A midline skin incision was made and sharp dissection was taken down through skin subcutaneous tissue and fat. The standard medial parapatellar incision was made and the patella was subluxed laterally. The standard deep MCL release was done and the fat pad was resected. Next our attention was directed to the femur. Navigation pins were placed, navigation was registered. Our attention was then directed towards the distal femur where the distal femoral component was removed using an osteotome to break up the bone cement interface. The distal femoral cutting block was pinned into place and 10 mm of distal femur resection was completed. The distal femoral cut was verified with navigation. The knee was then placed in deep flexion navigation points were used to place the appropriate rotation of the distal femoral cutting block. A size 4 4-in-1 cutting block was selected and pinned into place. The anterior cut was then made and checked for notching. The subsequent anterior chamfer cuts, posterior condylar cuts and posterior chamfer cuts were made while ensuring the MCL and LCL were protected. Our attention was then turned to the tibia where the tibial component was removed using an osteotome to break up the bone cement interface. iCIMS tibial cutting guide was used to make the appropriate tibial cut 90 degrees from the mechanical axis. Just below the lateral joint line where the previous lateral unit had been removed. Navigation was then used to verify the cut. A size 4 tibial base plate was selected. the knee was flexed to 90 degrees and the soft tissues and posterior osteophytes were removed from the joint. 40 cc of the periarticular injection was injected into the posterior medial corner of the joint. The knee was flexed and the box cutting guide was placed in the distal femur at the appropriate position and pinned into place. Saw and chisel were then used to make the box cut. The appropriate trials were then placed on the femur and tibia. A trial polyethylene was trialed to ensure proper balancing and stability of the knee. Patella tracking, was then verified and corrected appropriately as needed. The appropriate tibial internal rotation was then marked with a bovie. Our attention was then directed to the patella. The patella was everted and a flat resection was made. The lug holes were drilled and the patella trial was placed. Patellar tracking was checked and deemed appropriate. Once we were happy the femur and trial components were removed. the tibia was subluxed and pinned into place and the keel was punched and the canal was reamed, no reaming was done in preparation for the longer tibial stem. Tibial stem was used due to a small bone defect in the lateral tibial condyle. Final components were verified and opened, and cement was mixed in a vacuum. Targazyme Simplex cement was used. The wound was copiously irrigated with normal saline. When the cement was ready the components were cemented into place starting with the tibia, femur and finally the patella. The trial poly component was placed and the knee was placed in full extension. All excess cement was removed in the process. Once the cement had cured the tracking, alignment and balance were verified and a size 13 mm polyethylene component was placed. Once the final components were placed the wound was copiously irrigated with normal saline solution and the periarticular injection was given. The wound was closed in a layer mendoza fashion using #1 vicryl interrupted sutures for the arthrotomy, 2-0 interrupted Vicryl suture for the subcuticular layer and steffen for final skin closure. A sterile compressive dressing was then placed. The patient was then awakened from anesthesia, transferred to the [place] and transferred to the PACU for recovery. Post op plan DVT ppx: ASA 325mg, thigh high compression stockings Follow up: in office in 2 weeks for wound check PT: to start POD #0 at hospital, outpatient PT should be arranged. Grafts/Implants Used: Kimberly triathlon total knee - Complications None - Admit VTE Documentation VTE Present on Admission: No VTE Mechan Device Prophylaxis: SCD's, Thigh High JESSICA Hose VTE Pharm Prophylaxis ordered?: Yes 07/25/18 1157 <Electronically signed by Augusto Sellers MD> Date Augusto Sellers MD CC: Giovanny Felder MD; Augusto Sellers MD Signed Observed: 07/25/2018 Status: F Source: [place] CULTURE, DEEP WOUND 11:10 AM [facility] REPOSITORY Order Date: 05/31/17 List Antibiotics Last 48 Hours? Y Comments: SUPRA PATELLAR SYNOVIUM- RIGHT Gram Stain Gram Stain 1+ White Blood Cells No organisms seen Wound Culture No growth aerobically. Cult, Anaerobic No growth in 5 days. Performed By: #### M100.1500 #### [facility] [address] [place], [place], [address] Observed: 07/25/2018 Status: F Source: [place] CULTURE, DEEP WOUND 11:10 AM [facility] REPOSITORY Order Date: 05/31/17 List Antibiotics Last 48 Hours? Y Comments: TIBIAL MEMBRANE-RIGHT Gram Stain Gram Stain Rare White Blood Cells 2+ Red Blood Cells No organisms seen Wound Culture No growth aerobically. Cult, Anaerobic No growth in 5 days. Performed By: #### M100.1500 #### [facility] [address] [place], [address] Observed: 07/25/2018 Status: F Source: ALEJANDRA CULTURE, DEEP WOUND 11:10 AM [facility] REPOSITORY Order Date: 05/31/17 List Antibiotics Last 48 Hours? Y Comments: RIGHT POSTERIOR KNEE TISSUE Gram Stain Gram Stain 4+ Red Blood Cells Rare White Blood Cells No organisms seen Wound Culture No growth aerobically. Cult, Anaerobic No growth in 5 days. Performed By: #### M100.1500 #### [facility] [address] [place], [address] [employer] Observed: 07/25/2018 Status: F Source: ALEJANDRA CULT/SMEAR [id number] 11:10 AM [facility] REPOSITORY Comments: RIGHT POSTERIOR KNEE TISSUE AFB Smear/Fluor TESTING PERFORMED AT [facility]. ORIGINAL REPORT ON FILE IN LAB CONTAINS ADDITIONAL TEST SITE INFORMATION. Smear, Acid Fast Tissue Grinding Smear: Negative AFB Cult TESTING PERFORMED AT [facility]. ORIGINAL REPORT ON FILE IN LAB CONTAINS ADDITIONAL TEST SITE INFORMATION. Culture, Acid Fast NO ACID-FAST BACILLI ISOLATED AFTER 6 WEEKS. Performed By: #### M100.3880 #### [facility] [address] [place], [address] Observed: 07/25/2018 Status: F Source: ALEJANDRA JAIMES, FUNGUS W/ 11:10 [facility] [id number] REPOSITORY Comments: RIGHT POSTERIOR KNEE TISSUE Is this test to exclude patient from TB Isolation? N Cu,[id number] TESTING PERFORMED AT [facility]. ORIGINAL REPORT ON FILE IN LAB CONTAINS ADDITIONAL TEST SITE INFORMATION. CUF No yeast or mold isolated after [address] TESTING PERFORMED AT [facility]. ORIGINAL REPORT ON FILE IN LAB CONTAINS ADDITIONAL TEST SITE INFORMATION. Fungus Stain No yeast or mold observed. Performed By: #### M600.1900 #### [facility] [address] [place] [address] [place], [address] [employer] Observed: 07/25/2018 Status: F Source: ALEJANDRA CULT/SMEAR [id number] 11:10 [facility] REPOSITORY Comments: SUPRA PATELLAR SYNOVIUM- RIGHT AFB Smear/Fluor TESTING PERFORMED AT [facility]. ORIGINAL REPORT ON FILE IN LAB CONTAINS ADDITIONAL TEST SITE INFORMATION. Smear, Acid Fast Tissue Grinding Smear: Negative AFB Cult [facility] ORIGINAL REPORT ON FILE IN LAB CONTAINS ADDITIONAL TEST SITE INFORMATION. Culture, Acid Fast NO ACID-FAST BACILLI ISOLATED AFTER 6 WEEKS. Performed By: #### M100.3880 #### [facility] [address] [place], [address] Observed: 07/25/2018 Status: F Source: XIMENA PICKARD W/ 11:10 [facility] [id number] REPOSITORY Comments: SUPRA PATELLAR SYNOVIUM- RIGHT Is this test to exclude patient from TB Isolation? N Cu,[id number] TESTING PERFORMED AT [facility]. ORIGINAL REPORT ON FILE IN LAB CONTAINS ADDITIONAL TEST SITE INFORMATION. CUF No yeast or mold isolated after [address] [facility]. ORIGINAL REPORT ON FILE IN LAB CONTAINS ADDITIONAL TEST SITE INFORMATION. Fungus Stain No yeast or mold observed. Performed By: #### M600.1900 #### [facility] [address] [place], [address] [employer] Observed: 07/25/2018 Status: F Source: ALEJANDRA CULT/SMEAR [id number] 11:10 AM [facility] REPOSITORY Comments: TIBIAL MEMBRANE-RIGHT AFB Smear/Fluor TESTING PERFORMED AT [facility]. ORIGINAL REPORT ON FILE IN LAB CONTAINS ADDITIONAL TEST SITE INFORMATION. Smear, Acid Fast Tissue Grinding Smear: Negative AFB Cult TESTING PERFORMED AT [facility]. ORIGINAL REPORT ON FILE IN LAB CONTAINS ADDITIONAL TEST SITE INFORMATION. Culture, Acid Fast NO ACID-FAST BACILLI ISOLATED AFTER 6 WEEKS. Performed By: #### M100.3880 #### [facility] [address] [place], [address] KNEE 1 OR 2 VIEWS Observed: 07/25/2018 Status: F Source: ALEJANDRA 7:12 AM [facility] REPOSITORY [facility] Imaging Services [address] [place] [address] Knee 1 or 2 Views MR#: [id number] Acct: [id number] Name: KELSEY WARD Rep #: [id number] : 1950 F 68 From: Fabian Chapman MD PCP: Giovnany Felder MD Status: ADM IN Study: Knee 1 or 2 Views Date of Exam: 07/25/18 Exam# [id number] Ordering Dr: Augusto Sellers MD STUDY: X-RAY - RIGHT KNEE REASON FOR EXAM: Female, 68 years old. Total knee replacement. TECHNIQUE: 2 view(s) of the knee. COMPARISON: None. FINDINGS: Normal visualized distal femur. Normal visualized proximal tibia and fibula. Normal proximal tibiofibular articulation. The patient is status post total knee replacement. There is good alignment. Postoperative soft tissue changes. RAD/Knee 1 or 2 Views IMPRESSION: Status post total knee replacement. There is good alignment. Postoperative soft tissue changes. Electronically Signed: Fabian Chapman MD at 13:34 EDT Tel [phone], Service support , CC: Giovanny Felder MD; Augusto Sellers MD Food Service Representative: Signed ALBUMIN, SERUM Collected: 07/16/2018 Status: F Source: [place] 2:10 PM [facility] REPOSITORY TYPE CODE TESTS RESULT OUT OF RANGE REFERENCE UNITS LAB L501.1800 3.2-5.0 g/dL Normal ALB 3.7 Performed By: #### L501.1800 #### [facility] [address] [place], [address] HISTORY AND PHYSICAL Observed: 07/13/2018 Status: F Source: ALEJANDRA EXAM 8:22 AM [facility] REPOSITORY [facility] Medical Records Department [address] [place] [address] History and Physical 07/13/18820 MR#: [id number] Acct: [id number] Name: KELSEY WARD Rep #: [id number] : 1950 68 From: Amado Shepard PA-C PCP: Giovanny Felder MD Status: PRE IN Y [place] [facility] [place] and Physical DATE OF SURGERY: 07/25/2018 SCHEDULED PROCEDURE: Right unicompartmental knee arthroplasty converted to a right total knee arthroplasty HISTORY OF PRESENT ILLNESS: This is a 68-year-old female who is been having ongoing pain in the right knee for over 3 years. Patient had a previous right lateral unicompartmental knee replacement in 2006. Patient denied any postoperative problems or infections. Her pain is intermittent and aching. She has increased pain going up and down stairs. Patient states she has difficult time with activities of daily living including leisure activities. She has difficult time walking on uneven ground due to the pain. She has tripped secondary to her right knee pain. Patient previously underwent a left total knee arthroplasty on May 30, 2018 and is doing well from the surgery. She currently denies any chest pain, shortness of breath, fevers chills, recent infections. We have undergone preoperative clearance from primary care physician. Patient has medical history pertinent for hypertension and ulcers. Patient has tried oral medications consisting of Advil, Celebrex, Tylenol with minimal relief. She has been using a cane. REVIEW OF SYSTEMS: ROS: Const: Denies change in appetite, fever and weight change. CV: Denies chest pain, heart murmur and irregular heartbeat. Resp: Denies cough, pneumonia, shortness of breath, tuberculosis and wheezing. GI: Denies constipation, diarrhea, heartburn, nausea, rectal itching, bloody stools and vomiting. : Denies incontinence. Musculo: Reports trouble walking and weakness, but denies leg swelling and pain. Skin: Denies Raynaud's, history of shingles and tattoo. Neuro: Denies ambulatory dysfunction, dizziness, numbness/tingling and tremor. Psych: Reports stress, but denies anxiety and insomnia. Donald/Lymph: Reports bleeding/bruising tendency, but denies anemia and past transfusion. Reviewed, no changes. PAST MEDICAL HISTORY: Advance Care Plan: No Advance Directives Effective Date: 05/03/2018 PMH: Medical Problems: Arthritis, High Blood Pressure, Hypercholesterolemia, Ulcers, Vision Problems/Blind, Diverticulitis Accidents: Biceptal Tendon - (1997) WORK INJURY Surgical Hx: Gallbladder - (1994) Hysterectomy - (1987) Tubal Ligation - (1983) Tonsillectomy - (1963) LT AND RT Hand - (1951) RT Knee LT Knee Arhtroscopy - (2015) RT Shoulder Arthroscopy - (1997) Federico Bunion SX LT Partial Knee Replacment - (1999) DR HOLGUIN Breast Reduction - (2004) Peptic Ulcer - (08/2017) Anesthesia Complications: None Assistive Devices: Glasses Reviewed, no changes. SOCIAL HISTORY: SH: Marital: .Occupation: Retired.Work Status: Retired.Hand Dominance: Left-handed. Personal Habits: Cigarette Use: Never Smoked Cigarettes.Alcohol: Denies use.Drug Use: Denies Use.Enjoy Exercising: Never Exercises. Reviewed, no changes. VITALS: Ht: 63 Wt: 227lb 4oz Wt k.081 BMI: 40.3 BP: 138/80 T: 98.2 T: 36.8C ALLERGIES: Levaquin Phenobarbital Latex MEDICATIONS: Bactroban 2 % apply to each notril as directed 5 days prior to surgery, Atorvastatin Calcium 40 mg 1 tab PO daily, Celebrex 200 mg 1 by mouth every day, Citalopram Hydrobromide 20 mg 1 tab PO daily, Losartan Potassium 100 mg 1 tab PO daily, Levothyroxine Sodium 100 mcg 1 tab PO daily, Vitamin D3 1000 Unit 1 cap PO daily, Vitamin B12 1000 mcg 1 tab PO daily, Pantoprazole Sodium 40 mg 1 tab PO daily, Advil 200 mg prn PRE-OP EXAM: General appearance:NORMAL Other: Eyes: Conjunctivae and lids: NORMAL Pupils: ERR Ears, Nose, Mouth, and Throat: NORMAL Other: Inspection of lips, teeth and gums: NORMAL Other: Neck: Examination of neck: no masses noted. Respiratory: Assessment of respiratory effort: NORMAL Other: Auscultation of lungs: clear to auscultation no wheezes, rhonchi or rales. Cardiovascular: Auscultation of heart: regular rate and rhythm, no murmurs, gallops or rubs. Exam of carotid arteries: NORMAL Other: Gastrointestinal: Exam of abdomen: soft, nontender, nondistended bowel sounds present. PHYSICAL EXAMINATION: Right knee is cool to touch without erythema. Patient has mild effusion in the right knee. Patient has tenderness to palpation over the lateral and medial right knee. Range of motion 0 of extension to 110 of flexion. There is positive crepitus with range of motion. Sensation intact to light touch. IMAGING STUDIES: X-rays of the right knee does reveal previous well fixed lateral compartment arthroplasty with progressive medial joint space narrowing and patellofemoral joint space narrowing and subchondral sclerosis consistent with progressive osteoarthritis of the right knee. IMPRESSION: 1. Progressive right knee osteoarthritis with previous right unicompartmental knee replacement 2. Hypertension 3. History of ulcers 4. Hypercholesterolemia 5. Diverticulitis PLAN: Dr. Sellers did discuss and review with the patient all treatment options including surgical versus nonsurgical options. Patient does wish to proceed with the above-stated procedure. Potential risks, benefits, and complications of the procedure were discussed in detail including but not limited to , infection, nerve and blood vessel damage, persistent pain, numbness, tingling, paresthesias, blood clot, pulmonary embolism, and requirement for possible further surgery. The patient expressed full understanding and has no further questions for the doctor. Patient does agree to proceed with the above-stated procedure and has signed the surgery consent form. ___ I have re-examined the patient. There are no clinical changes since date of exam. ___ See progress notes for changes. ___ Dictated on admission Date: Time: Signature: 07/13/18 0822 <Electronically signed by Amado Shepard PA-C> Date Amado Shepard PA-C Cosigner Signature: Date (if applicable) CC: Giovanny Felder MD; Amado ARTIS Signed CBC W/DIFF, AUTOMATED Collected: 07/11/2018 Status: F Source: ALEJANDRA 11:15 AM [facility] REPOSITORY TYPE CODE TESTS RESULT OUT OF RANGE REFERENCE UNITS LAB L100.1000 4.4-11.0 K/mm3 Normal WBC 7.0 LAB L100.1200 4.2-5.4 M/mm3 Normal RBC 4.38 LAB L100.1300 12.0-15.0 g/dl Normal HGB 12.2 LAB L100.1400 37-47 % Normal HCT 38.1 LAB L100.1500 81-99 fL Normal MCV 87.0 LAB L100.1600 27.0-32.0 pg Normal MCH 27.9 LAB L100.1700 32-36 g/gl Normal MCHC 32.0 LAB L100.1810 11.6-14.6 % Normal RDW CV 13.8 LAB L100.1820 35.1-43.9 fl Normal RDW SD 43.4 LAB L100.1900 150-450 K/mm3 Normal PLT 263 LAB L100.2000 6.2-12.0 fl Normal MPV 10.9 LAB L100.2100 47-70 % High NEUT% 70.9 LAB L100.2200 19-41 % Normal LY% 19.3 LAB L100.2300 0-10 % Normal MONO% 7.0 LAB L100.2400 0-5 % Normal EO% 2.3 LAB L100.2500 0-1 % Normal BASO% 0.4 LAB L100.2550 0.0-0.9 % Normal IM GRAN % 0.100 Result Comment: IG% - Immature Granulocytes (promyelocytes, myelocytes and metamyelocytes) > 1% indicates that a LEFT SHIFT is Present. LAB L100.2620 2.0-7.7 X10 3/uL Normal Absolute Neut 5.0 LAB L100.2720 0.83-4.51 X10 3/ul Normal Absolute Lymph 1.36 Performed By: #### L100.0100 #### [facility] [address] [place], [address] BASIC METABOLIC Collected: 07/11/2018 Status: F Source: ALEJANDRA PROFILE (BMP) 11:15 AM [facility] REPOSITORY TYPE CODE TESTS RESULT OUT OF RANGE REFERENCE UNITS LAB L501.0100 74-106 mg/dL Normal GLU 94 Result Comment: Please note revised GLUCOSE reference range effective 2017. LAB L501.1000 7-18 mg/dL Normal BUN 14 LAB L501.1100 0.55-1.02 mg/dL Normal CREAT,SERUM 0.81 Result Comment: The validity of the calculated GFR AND GFRAA in patients over 70 years has not been determined. Clinical correlation is essential. LAB L501.1110 >60 mL/min Normal EST GFR 75 Result Comment: Non- GFR Calc LAB L501.1115 >60 mL/min Normal EST GFR - AA 91 Result Comment: GFR Calc LAB L501.1255 ml/min Normal Estimated CRCL 56.52 LAB L501.1300 10-20 RATIO Normal BUN/CRE 17.3 LAB L501.2200 8.5-10 mg/dL Normal .1 CA 8.9 LAB L501.5300 136-14 mmol/L Normal 5 NA 141 LAB L501.5600 3.5-5. mmol/L Normal 1 K 3.7 LAB L501.5900 98-107 mmol/L Normal CL 106 LAB L501.6100 21.0-3 mmol/L Normal 2.0 CO2 26.0 LAB L501.6200 5-15 Normal GAP 9 Performed By: #### L500.2500 #### [facility] [address] [place], [address] Observed: 07/11/2018 Status: F Source: ALEJANDRA MRSA/SAID SCREEN 11:10 AM [facility] REPOSITORY MRSA/SAID SCRN S. AUREUS S. aureus Negative MRSA MRSA Negative Performed By: #### M100.651 #### [facility] [address] [facility] [place], [address] DISCHARGE INSTRUCTION Observed: 06/01/2018 Status: F Source: [place] 7:17 AM [facility] REPOSITORY [facility] Medical Records Department [address] [place] [address] Instructions for Home/Discharge Instructions 06/01/18 0715 MR#: [id number] Acct: [id number] Name: KELSEY WARD Rep #: [id number] : 1950 68 From: Amado Shepard PA-C PCP: Giovanny Felder MD Status: ADM IN Discharge Diet: No Restrictions Discharge Activity: May Not Drive May shower in (days): 1 - Turned dressing away from water Ice area for (Minutes): 20 - every hour while awake. Weight Bearing Status: Weight bearing as tolerated Elevate: Operative Extremity Additional Activity Instructions:: Wear elastic stockings for 2 weeks after your surgery. Call your doctor if your incision/area has: Continuous Slow Oozing, Sudden Increased Bleeding, Increased Pain/ Swelling, Increased Redness, Foul Smelling Discharge Call your doctor if you observe: Fever of 101 or Higher, Coldness, Increased Pain, Numbness or Tingling, Change in Color, Calf discomfort, Uncontrolled pain Remove Dressing in (days):: 4 - Okay to remove on June 05, 2018 Additional Instructions: Follow [facility] postop instructions If you have any continued drainage please contact [facility] and will need to be seen for early follow-up. Allergies/Adverse Reactions: Allergies bee venom protein (honey bee) Allergy (Verified 05/16/18 13:35) Anaphylaxis levofloxacin [From Levaquin] Allergy (Verified 05/16/18 13:35) Hives phenobarbital Allergy (Verified 05/16/18 13:39) Unknown Latex, Natural Rubber Adverse Reaction (Verified 05/16/18 13:35) Other Medications to take at Discharge Atorvastatin Calcium 40 mg PO QHS 09/09/17 Cholecalciferol (Vitamin D3) [Vitamin D3] 2,000 unit PO DAILY 09/09/17 Levothyroxine [Synthroid] 100 mcg PO DAILY 09/09/17 Losartan Potassium [Cozaar] 100 mg PO DAILY 09/09/17 Celecoxib 200 mg PO QDAY PRN 05/16/18 Citalopram Hydrobromide [Celexa] 20 mg PO DAILY 05/16/18 Pantoprazole Sodium [Protonix] 40 mg PO DAILY PRN 05/16/18 Acetaminophen [Tylenol] 1,000 mg PO Q8 #90 tab 06/01/18 Aspirin [Aspirin, Baby] 81 mg PO BIDCM #60 tab.chew 06/01/18 Oxycodone [Oxyir] 5 - 10 mg PO Q4H PRN PRN 6 Days #80 tablet 06/01/18 The following prescriptions were given: Oxycodone [Oxyir] 5 - 10 mg PO Q4H PRN PRN 6 Days #80 tablet PRN Reason: Mod-Severe Pain (-08/08) Acetaminophen [Tylenol] 1,000 mg PO Q8 #90 tab Aspirin [Aspirin, Baby] 81 mg PO BIDCM #60 tab.chew Primary Care Physician: Giovanny Felder MD [Primary Care Provider] - Test Results: Test results from this visit will be discussed in further detail at your follow-up appointment, if applicable. Please Follow Up With: home health physical therapy Please Follow Up With: Amado Shepard PA-C When: 06/13/18 @ 9:15 am 06/01/18 0717 <Electronically signed by Amado Shepard PA-C> Date Amado Shepard PA-C CC: Giovanny Felder MD CBC-COMPLETE BLOOD CNT Collected: 06/01/2018 Status: F Source: ALEJANDRA NO DIFF 5:35 AM [facility] REPOSITORY TYPE CODE TESTS RESULT OUT OF RANGE REFERENCE UNITS LAB L100.1000 4.4-11.0 K/mm3 Normal WBC 9.6 LAB L100.1200 4.2-5.4 M/mm3 Low RBC 3.50 LAB L100.1300 12.0-15.0 g/dl Low HGB 10.0 LAB L100.1400 37-47 % Low HCT 31.3 LAB L100.1500 81-99 fL Normal MCV 89.4 LAB L100.1600 27.0-32.0 pg Normal MCH 28.6 LAB L100.1700 32-36 g/gl Low MCHC 31.9 LAB L100.1810 11.6-14.6 % Normal RDW CV 13.3 LAB L100.1820 35.1-43.9 fl Normal RDW SD 42.5 LAB L100.1900 150-450 K/mm3 Normal PLT 191 LAB L100.2000 6.2-12.0 fl Normal MPV 11.2 Performed By: #### L100.0500 #### [facility] [address] [place], [place], [address] BASIC METABOLIC Collected: 05/31/2018 Status: F Source: ALEJANDRA PROFILE (BMP) 5:50 AM [facility] REPOSITORY TYPE CODE TESTS RESULT OUT OF RANGE REFERENCE UNITS LAB L501.0100 74-106 mg/dL High GLU 157 Result Comment: Fasting Glucose result greater than or equal to 126 mg/dL suggests DIABETES MELLITUS per A.D.A. criteria. Please note revised GLUCOSE reference range effective 2017. LAB L501.1000 7-18 mg/dL Normal BUN 16 LAB L501.1100 0.55-1.02 mg/dL Normal CREAT,SERUM 0.76 Result Comment: The validity of the calculated GFR AND GFRAA in patients over 70 years has not been determined. Clinical correlation is essential. LAB L501.1110 >60 mL/min Normal EST GFR 81 Result Comment: Non- GFR Calc LAB L501.1115 >60 mL/min Normal EST GFR - AA 99 Result Comment: GFR Calc LAB L501.1255 ml/min Normal Estimated CRCL 43.77 LAB L501.1300 10-20 RATIO High BUN/CRE 21.2 LAB L501.2200 8.5-10 mg/dL Low .1 CA 8.2 LAB L501.5300 136-14 mmol/L Normal 5 NA 140 LAB L501.5600 3.5-5. mmol/L Normal 1 K 4.4 LAB L501.5900 98-107 mmol/L Normal CL 107 LAB L501.6100 21.0-3 mmol/L Normal 2.0 CO2 25.0 LAB L501.6200 5-15 Normal GAP 8 Performed By: #### L500.2500 #### [facility] [address] [place], [place], [address] OPERATIVE REPORT Observed: 05/30/2018 Status: F Source: [place] 11:00 AM [facility] REPOSITORY [facility] Medical Records Department [address] [place] [address] Operative Report 05/30/18 0929 MR#: [id number] Acct: [id number] Name: KELSEY WARD Rep #: [id number] : 1950 68 From: Augusto Sellers MD PCP: Giovanny Felder MD Status: ADM IN Y Location: [place] [id number] Report of Operation Date of Procedure: 05/30/18 Pre-Operative Diagnosis: Left knee primary osteo-arthritis Post-Operative Diagnosis: Left knee primary osteoarthritis Surgery/Procedure Performed:: Left total knee replacement Description of Surgical Findings:: Stable knee with good patella tracking. Due to chronic valgus alignment and lateral contractures lateral release had to be performed. computer installation engineer: Kevin Carlos Type of Anesthesia:: General Anesthesiologist: Dieudonne Long Special Medications: 2 g Ancef, 1 g TXA at incision, 1 g TXA closure, 10 mg Decadron, joint cocktail (5 mg Duramorph, 30 mL of 0.5% Ropivicaine, 1000 units of epinephrine, 30 mg of Toradol) Specimen's removed: Bony cuts Estimated Blood Loss (mL): 25 Fluids Replaced: 1600 ML Description of Procedure: Implants used: 1. Kimberly size 4 triathlon cruciate retaining distal femoral component 2. Kimberly size 3 universal tibial baseplate 3. Kimberly X3 3 mm CS polyethylene 4. Kimberly X3 29 mm asymmetric patella Brief history operative indications: 68-year-old f with history of left knee osteoarthritis with radiographic findings with loss of joint space, osteophyte formation and subchondral sclerosis. Failed conservative measures as mentioned in the H AND P. Discussion of total knee arthroplasty as well as risk and benefits were discussed the patient including but not limited to blood loss, DVTs, PEs, neurovascular damage, general risk of anesthesia including loss of life, and stiffness or instability were discussed with patient. Patient demonstrated understanding and was able to sign informed consent. Procedure: On the date of procedure patient's left lower extremity was marked in the preoperative area. The patient was then taken back to the operating room where the patient was placed on the table in the supine position. All bony prominences were identified a well-padded. Anesthesia assumed control of the C-spine and airway and remained controlled throughout the remainder of the procedure. A tourniquet was placed on the left upper thigh and the leg was prepped in a sterile fashion. The surgeon then scrubbed at this time .Upon reentering the room left lower extremity was draped in a standard orthopedic fashion. A timeout was then called and everyone agreed upon the side, the site, the procedure to be performed, patient's identity and antibiotics given. Esmarch bandage was used to exsanguinate the extremity and the tourniquet was placed up to 250 mmHg with the knee in flexion. A midline skin incision was made and sharp dissection was taken down through skin subcutaneous tissue and fat. The standard medial parapatellar incision was made and the patella was subluxed laterally. The standard deep MCL release was done and the fat pad was resected. Next our attention was directed to the femur. Navigation pins were placed, navigation was registered. The distal femoral cutting block was pinned into place and 10 mm of distal femur resection was completed. The distal femoral cut was verified with navigation. The knee was then placed in deep flexion in the standard Targazyme sizing guide was used to place the femoral component in 3 external rotation based on the posterior condyles. A size 4 4-in-1 cutting block was selected and pinned into place. The anterior cut was then made and checked for notching. The subsequent anterior chamfer cuts, posterior condylar cuts and posterior chamfer cuts were made while ensuring the MCL and LCL were protected. Our attention was then turned to the tibia where the navigation pins were placed, navigation was registered. iCIMS tibial cutting guide was used to make the appropriate tibial cut 90 degrees from the mechanical axis. Navigation was then used to verify the cut. A size 3 tibial base plate was selected. the knee was flexed to 90 degrees and the soft tissues and posterior osteophytes were removed from the joint. 40 cc of the periarticular injection was injected into the posterior medial corner of the joint. The appropriate trials were then placed on the femur and tibia. A trial polyethylene was trialed to ensure proper balancing and stability of the knee. Patella tracking, was then verified and corrected appropriately as needed. The appropriate tibial internal rotation was then marked with a bovie. Our attention was then directed to the patella. The patella was everted and a flat resection was made. The lug holes were drilled and the patella trial was placed. Patellar tracking was checked and deemed appropriate. Once we were happy lug holes were drilled for the femur and trial components were removed. the tibia was subluxed and pinned into place and the keel was punched and the canal was reamed. Final components were verified and opened, and cement was mixed in a vacuum. Alb[place] Simplex cement was used. The wound was copiously irrigated with normal saline. When the cement was ready the components were cemented into place starting with the tibia, femur and finally the patella. The trial poly component was placed and the knee was placed in full extension. All excess cement was removed in the process. Once the cement had cured the tracking, alignment and balance were verified and a size 9 mm CS polyethylene component was placed. Once the final components were placed the wound was copiously irrigated with normal saline solution and the periarticular injection was given. The wound was closed in a layer mendoza fashion using #1 vicryl interrupted sutures for the arthrotomy, 2-0 interrupted Vicryl suture for the subcuticular layer and steffen for final skin closure. A sterile compressive dressing was then placed. The patient was then awakened from anesthesia, transferred to the rridgedale and transferred to the PACU for recovery. Post op plan DVT ppx: ASA 81mg, thigh high compression stockings Follow up: in office in 2 weeks for wound check PT: to start POD #0 at hospital, outpatient PT should be arranged. My physician daycare assistant was a vital part of this case. He was important in appropriate retraction during the case, and protection of soft tissues during bony cuts. His intimate knowledge of the case and my steps aided in safe and expedient completion of the procedure as well as appropriate position of the leg during the case. He was also vital in assisting with closure under my direct supervision. Grafts/Implants Used: Albion triathlon total knee - Complications NONE - Admit VTE Documentation VTE Present on Admission: No VTE Mechan Device Prophylaxis: SCD's, Thigh High JESSICA Hose VTE Pharm Prophylaxis ordered?: Yes 05/30/18 1100 <Electronically signed by Augusto Sellers MD> Date Augusto Sellers MD CC: Giovanny Felder MD; Augusto Sellers MD Signed KNEE 1 OR 2 VIEWS Observed: 05/30/2018 Status: F Source: ALEJAN[place]A 7:15 AM [facility] Imaging Services [address] [place] [address] Knee 1 or 2 Views MR#: [id number] Acct: [id number] Name: KELSEY WARD Rep #: [id number] : 1950 F 68 From: Fabian Chapman MD PCP: Giovanny Felder MD Status: ADM IN Study: Knee 1 or 2 Views Date of Exam: 05/30/18 Exam# [id number] Ordering Dr: Augusto Sellers MD STUDY: X-RAY - LEFT KNEE REASON FOR EXAM: Female, 68 years old. Total knee replacement. TECHNIQUE: AP and lateral view(s) of the knee. COMPARISON: Comparison is made with prior study dated February 15, 2017. FINDINGS: Normal visualized distal femur. Normal visualized proximal tibia and fibula. Normal proximal tibiofibular articulation. The patient is status post total knee replacement. There is good alignment. Postoperative soft tissue changes. RAD/Knee 1 or 2 Views IMPRESSION: Status post total knee replacement. There is good alignment. Postoperative soft tissue changes. Electronically Signed: Fabian Chapman MD at 13:24 EDT Tel [phone], Service support , CC: Giovanny Fedler MD; Augusto Sellers MD Food Service Representative: Signed HISTORY AND PHYSICAL Observed: 05/17/2018 Status: F Source: ALEJANDRA EXAM 1:19 PM [facility] Medical Records Department [address] [place] [address] History and Physical 05/17/18 1318 MR#: [id number] Acct: [id number] Name: KELSEY WARD Rep #: [id number] : 1950 68 From: Amado Shepard PA-C PCP: Giovanny Felder MD Status: PRE IN Y [place] [facility] [place] Physical DATE OF SURGERY: 05/30/2018 SCHEDULED PROCEDURE: left total knee arthroplasty HISTORY OF PRESENT ILLNESS: This is a 68-year-old female who has been having ongoing pain for the past 7 months in the left knee. Patient also is complaining of pain in the right knee. Patient underwent a previous right partial unicompartmental knee replacement in 2006 by outside physician. Patient states her left knee pain has been constant, aching, sharp, and sore. She has increased pain going up and down stairs, walking a moderate distance. Rest is somewhat helpful. Patient has difficult time with activities of daily living that requires any kneeling, steps, walking long distance. Patient has tripped/stumbled secondary to the left knee pain. She feels unsafe going up and down stairs and getting into the top for shower. Patient has tried rest, elevation, cortisone injection and weight loss with minimal relief. Patient has had previous [address] Asif. Patient has also undergone a left knee arthroscopy in 2016. Patient currently denies any chest pain, shortness of breath, fevers chills, recent infections. After discussion with Dr. Augusto Sellers, the patient elected to proceed with a left total knee arthroplasty. We are obtaining surgical clearance from patient's primary care physician. Patient has medical history pertinent for hypertension. REVIEW OF SYSTEMS: ROS: Const: Denies change in appetite, fever and weight change. CV: Denies chest pain, heart murmur and irregular heartbeat. Resp: Denies cough, pneumonia, shortness of breath, tuberculosis and wheezing. GI: Denies constipation, diarrhea, heartburn, nausea, rectal itching, bloody stools and vomiting. : . (F Genital Sx) Denies incontinence. Musculo: Reports trouble walking and weakness, but denies leg swelling and pain. Skin: Denies Raynaud's, history of shingles and tattoo. Neuro: Denies ambulatory dysfunction, dizziness, numbness/tingling and tremor. Psych: Reports stress, but denies anxiety and insomnia. Donald/Lymph: Reports bleeding/bruising tendency, but denies anemia and past transfusion. Reviewed, no changes. PAST MEDICAL HISTORY: Advance Care Plan: No Advance Directives Effective Date: 05/03/2018 PMH: Medical Problems: Arthritis, High Blood Pressure, Hypercholesterolemia, Ulcers, Vision Problems/Blind, Diverticulitis Accidents: Biceptal Tendon - (1997) WORK INJURY Surgical Hx: Gallbladder - (1994) Hysterectomy - (1987) Tubal Ligation - (1983) Tonsillectomy - (1963) LT AND RT Hand - (1951) RT Knee LT Knee Arhtroscopy - (2015) RT Shoulder Arthroscopy - (1997) Federico Bunion SX LT Partial Knee Replacment - (1999) DR HOLGUIN Breast Reduction - (2004) Peptic Ulcer - (08/2017) Anesthesia Complications: None Assistive Devices: Glasses Reviewed, no changes. SOCIAL HISTORY: SH: Marital: .Occupation: Retired.Work Status: Retired.Hand Dominance: Left-handed. Personal Habits: Cigarette Use: Never Smoked Cigarettes.Alcohol: Denies use.Drug Use: Denies Use.Enjoy Exercising: Never Exercises. Reviewed, no changes. VITALS: Ht: 62.5 Wt: 224lb Wt k.606 BMI: 40.3 BP: 137/75 Pulse: 83 Resp: 16 T: 98.1 T: 36.7C ALLERGIES: Levaquin Phenobarbital Latex MEDICATIONS: Atorvastatin Calcium 40 mg 1 tab PO daily, Celebrex 200 mg 1 by mouth every day, Citalopram Hydrobromide 20 mg 1 tab PO daily, Losartan Potassium 100 mg 1 tab PO daily, Levothyroxine Sodium 100 mcg 1 tab PO daily, Vitamin D3 1000 Unit 1 cap PO daily, Vitamin B12 1000 mcg 1 tab PO daily, Pantoprazole Sodium 40 mg 1 tab PO daily, Advil 200 mg prn PRE-OP EXAM: General appearance:NORMAL Other: Eyes: Conjunctivae and lids: NORMAL Pupils: ERR Ears, Nose, Mouth, and Throat: NORMAL Other: Inspection of lips, teeth and gums: NORMAL Other: Neck: Examination of neck: no masses noted. Respiratory: Assessment of respiratory effort: NORMAL Other: Auscultation of lungs: clear to auscultation no wheezes, rhonchi or rales. Cardiovascular: Auscultation of heart: regular rate and rhythm, no murmurs, gallops or rubs. Exam of carotid arteries: NORMAL Other: Gastrointestinal: Exam of abdomen: soft, nontender, nondistended bowel sounds present. PHYSICAL EXAMINATION: Left knee is cool to touch without erythema or signs of infection. There is valgus alignment. Range of motion is 0 of extension to 105 of flexion. Patient has good strength of the left knee. Stable to varus and valgus stress test. There is mild effusion appreciated. Sensations intact to light touch. Patient has pain over the medial aspect of the left knee. IMAGING STUDIES: X-rays bilateral knees were obtained and it was [facility] which revealed left knee valgus alignment and lateral joint space narrowing, subchondral sclerosis, and osteophyte formation consistent with severe tricompartmental osteoarthritis. Right knee reveals a previous well-placed L6 lateral compartment arthroplasty with progressive medial joint space narrowing and patellofemoral joint space narrowing with subchondral sclerosis consistent with progressive osteoarthritis of the right knee. IMPRESSION: 1. Right left osteoarthritis 2. Painful right total knee arthroplasty 3. Hypertension 4. Hypercholesterolemia 5. History of ulcers 6. History of diverticulitis PLAN: Dr. Sellers did discuss and review with the patient all treatment options including surgical versus nonsurgical options. Patient does wish to proceed with the above-stated procedure. Potential risks, benefits, and complications of the procedure were discussed in detail including but not limited to , infection, nerve and blood vessel damage, persistent pain, numbness, tingling, paresthesias, blood clot, pulmonary embolism, and requirement for possible further surgery. The patient expressed full understanding and has no further questions for the doctor. Patient does agree to proceed with the above-stated procedure and has signed the surgery consent form. ___ I have re-examined the patient. There are no clinical changes since date of exam. ___ See progress notes for changes. ___ Dictated on admission Date: Time: Signature: 05/17/18 1319 <Electronically signed by Amado Shepard PA-C> Date Amado Shepard PA-C Cosigner Signature: Date (if applicable) CC: Giovanny Fedler MD; Amado Olguin PROTHROMBIN TIME W/INR Collected: 05/16/2018 Status: F Source: A[place]JAN[place]A 2:30 PM [facility] [place] REPOSITORY TYPE CODE TESTS RESULT OUT OF RANGE REFERENCE UNITS LAB L300.4150 11.7-14.9 SECONDS Normal PROTIME 13.8 LAB L300.4200 Normal INR 1.1 Performed By: #### L300.3900, L300.4310 #### [facility] [address] [place], [place], [id number] PARTIAL THROMBOPLAST Collected: 05/16/2018 Status: F Source: ALEJANDRA TIME 2:30 PM [facility] REPOSITORY TYPE CODE TESTS RESULT OUT OF REFERENCE UNITS RANGE LAB L300.4310 24.1-36.2 Seconds High PTT 42.9 Performed By: #### L300.3900, L300.4310 #### [facility] [address] [place], [place], [address] Observed: 05/16/2018 Status: F Source: ALEJANDRA MRSA/SAID SCREEN 2:30 PM [facility] REPOSITORY MRSA/SAID SCRN S. AUREUS S. aureus Positive MRSA MRSA Negative Performed By: #### M100.651 #### [facility] [address] [place], [place], [id number] THYROID STIM HORMONE Collected: 05/16/2018 Status: F Source: ALEJANDAR (TSH) 12:00 AM [facility] REPOSITORY TYPE CODE TESTS RESULT OUT OF RANGE REFERENCE UNITS LAB L501.9520 0.358-3.74 uIU/mL Normal TSH 1.52 Performed By: #### L501.9520 #### [facility] [address] [place], [place], [address] COMPREHENSIVE METABOLIC Collected: 05/11/2018 Status: F Source: ALEJANDRA ARREDONDO 2:45 PM [facility] REPOSITORY TYPE CODE TESTS RESULT OUT OF RANGE REFERENCE UNITS LAB L501.0100 74-106 mg/dL Normal GLU 93 Result Comment: Please note revised GLUCOSE reference range effective 2017. LAB L501.1000 7-18 mg/dL Normal BUN 18 LAB L501.1100 0.55-1.02 mg/dL Normal CREAT,SERUM 0.89 Result Comment: The validity of the calculated GFR AND GFRAA in patients over 70 years has not been determined. Clinical correlation is essential. LAB L501.1110 >60 mL/min Normal EST GFR 67 Result Comment: Non- GFR Calc LAB L501.1115 >60 mL/min Normal EST GFR - AA 81 Result Comment: GFR Calc LAB L501.1300 10-20 RATIO High BUN/CRE 20.1 LAB L501.1500 6.4-8.2 g/dL T Normal PROT 7.4 LAB L501.1800 3.2-5.0 g/dL Normal ALB 3.9 LAB L501.1950 2.2-4.2 g/dL Normal GLOB 3.5 LAB L501.2000 0.9-2.4 RATIO Normal A/G 1.1 LAB L501.2200 8.5-10.1 mg/dL CA Normal 9.3 LAB L501.4100 15-37 U/L Normal AST 22 LAB L501.4305 45-117 U/L Normal ALK P 110 LAB L501.4405 13-56 U/L Normal ALT 25 LAB L501.4600 0.20-1.00 mg/dL T Normal BILI 0.50 LAB L501.5300 136-145 mmol/L NA Normal 142 LAB L501.5600 3.5-5.1 mmol/L K Normal 4.0 LAB L501.5900 98-107 mmol/L CL Normal 102 LAB L501.6100 21.0-32.0 mmol/L Normal CO2 32.0 LAB L501.6200 5-15 Normal GAP 8 Performed By: #### L500.4050 #### [facility] [address] [place], [place], [address] CBC W/DIFF, AUTOMATED Collected: 05/03/2018 Status: F Source: ALEJANDRA 4:27 PM [facility] REPOSITORY TYPE CODE TESTS RESULT OUT OF RANGE REFERENCE UNITS LAB L100.1000 4.4-11.0 K/mm3 Normal WBC 8.1 LAB L100.1200 4.2-5.4 M/mm3 Normal RBC 4.49 LAB L100.1300 12.0-15.0 g/dl Normal HGB 12.6 LAB L100.1400 37-47 % Normal HCT 39.2 LAB L100.1500 81-99 fL Normal MCV 87.3 LAB L100.1600 27.0-32.0 pg Normal MCH 28.1 LAB L100.1700 32-36 g/gl Normal MCHC 32.1 LAB L100.1810 11.6-14.6 % Normal RDW CV 13.4 LAB L100.1820 35.1-43.9 fl Normal RDW SD 42.7 LAB L100.1900 150-450 K/mm3 Normal PLT 262 LAB L100.2000 6.2-12.0 fl Normal MPV 10.7 LAB L100.2100 47-70 % Normal NEUT% 68.2 LAB L100.2200 19-41 % Normal LY% 22.1 LAB L100.2300 0-10 % Normal MONO% 7.4 LAB L100.2400 0-5 % Normal EO% 2.0 LAB L100.2500 0-1 % Normal BASO% 0.2 LAB L100.2550 0.0-0.9 % Normal IM GRAN % 0.100 Result Comment: IG% - Immature Granulocytes (promyelocytes, myelocytes and metamyelocytes) > 1% indicates that a LEFT SHIFT is Present. LAB L100.2620 2.0-7.7 X10 3/uL Normal Absolute Neut 5.5 LAB L100.2720 0.83-4.51 X10 3/ul Normal Absolute Lymph 1.79 Performed By: #### L100.0100, L101.9900 #### [facility] [address] [place], [address] ERYTHROCYTE SED RATE Collected: 05/03/2018 Status: F Source: ALEJANDRA 4:27 PM [facility] REPOSITORY TYPE CODE TESTS RESULT OUT OF RANGE REFERENCE UNITS LAB L102.0000 0-30 mm/hr Normal SED RATE 17 Performed By: #### L100.0100, L101.9900 #### [facility] [address] [place], [address] CRP Collected: 05/03/2018 Status: F Source: ALEJANDRA 4:27 PM [facility] REPOSITORY TYPE CODE TESTS RESULT OUT OF RANGE REFERENCE UNITS LAB L501.6710 0.0-3.0 mg/L High 4.99 C-REACTIVE PROT Result Comment: C-Reactive Protein (CRP) provides useful information for the diagnosis, therapy and monitoring of inflammatory processes and associated diseases. For the evaluation of Relative Risk for Cardiovascular Disease, a High Sensitivity CRP (HSCRP) should be ordered. Performed By: #### L501.6710 #### [facility] [address] [facility] [place], [address] BASIC METABOLIC Collected: 02/23/2018 Status: F Source: ALEJANDRA PROFILE (BMP) 8:31 AM [facility] REPOSITORY TYPE CODE TESTS RESULT OUT OF RANGE REFERENCE UNITS LAB L501.0100 74-106 mg/dL Normal GLU 93 Result Comment: Please note revised GLUCOSE reference range effective 2017. LAB L501.1000 7-18 mg/dL Normal BUN 18 LAB L501.1100 0.55-1.02 mg/dL Normal CREAT,SERUM 0.89 Result Comment: The validity of the calculated GFR AND GFRAA in patients over 70 years has not been determined. Clinical correlation is essential. LAB L501.1110 >60 mL/min Normal EST GFR 68 Result Comment: Non- GFR Calc LAB L501.1115 >60 mL/min Normal EST GFR - AA 82 Result Comment: GFR Calc LAB L501.1300 10-20 RATIO High BUN/CRE 20.3 LAB L501.2200 8.5-10.1 mg/dL CA Normal 8.9 LAB L501.5300 136-145 mmol/L NA Normal 139 LAB L501.5600 3.5-5.1 mmol/L K Normal 3.7 LAB L501.5900 98-107 mmol/L CL Normal 105 LAB L501.6100 21.0-32.0 mmol/L Normal CO2 27.0 LAB L501.6200 5-15 Normal GAP 7 Performed By: #### L500.2500, L500.4100, L501.78475, L501.9310, L501.9520 #### [facility] [address] [place], [place], [id number] LIPID PROFILE Collected: 02/23/2018 Status: F Source: [place] 8:31 AM [facility] REPOSITORY TYPE CODE TESTS RESULT OUT OF RANGE REFERENCE UNITS LAB L501.4900 200 mg/dL High CHOL 217 Result Comment: <200 mg/dL Desirable 200-240 mg/dL Borderline >240 mg/dL High Risk LAB L501.5000 mg/dL Normal TRIG 148 Result Comment: The drugs N-Acetylcysteine and Metamizole may falsely depress this assay. Serum Triglycerides Reference Interval Normal <150 mg/dL Borderline high 150 - 199 mg/dL High 200 - 499 mg/dL Very High > or = 500 mg/dL LAB L501.6400 mg/dL Normal HDL 63 Result Comment: The drugs N-Acetylcysteine and Metamizole may falsely depress this assay. Reference Range HDL <40 mg/dL Low HDL Cholesterol HDL >or= 60 mg/dL High HDL Cholesterol LAB L501.6500 0-130 mg/dL Normal LDL 124 LAB L501.6600 5-40 mg/dL Normal VLDL 30 Performed By: #### L500.2500, L500.4100, L501.73275, L501.9310, L501.9520 #### [facility] [address] [place], [place], [address] FREE T3 Collected: 02/23/2018 Status: F Source: [place] 8:31 AM [facility] REPOSITORY TYPE CODE TESTS RESULT OUT OF RANGE REFERENCE UNITS LAB L501.34945 2.18-3.98 pg/mL Normal FREE T3 2.6 Performed By: #### L500.2500, L500.4100, L501.34298, L501.9310, L501.9520 #### [facility] [address] [place], [address] T4 TOTAL, THYROXIN Collected: 02/23/2018 Status: F Source: ALEJANDRA 8:31 AM [facility] REPOSITORY TYPE CODE TESTS RESULT OUT OF RANGE REFERENCE UNITS LAB L501.9310 4.8-13.9 ug/dL T4 Normal THYROXIN 12.9 Performed By: #### L500.2500, L500.4100, L501.96891, L501.9310, L501.9520 #### [facility] [address] [place], [address] THYROID STIM HORMONE Collected: 02/23/2018 Status: F Source: ALEJANDRA (TSH) 8:31 AM [facility] REPOSITORY TYPE CODE TESTS RESULT OUT OF RANGE REFERENCE UNITS LAB L501.9520 0.358-3.74 uIU/mL Normal TSH 2.33 Performed By: #### L500.2500, L500.4100, L501.23658, L501.9310, L501.9520 #### [facility] [address] [facility] [place], [place], [address] ORTHOPEDIC VISIT Observed: 02/05/2018 Status: F Source: ALEJANDRA REPORT 1:41 PM [facility] REPOSITORY [facility] [address] [place] [id number] OFFICE VISIT Date of Service: 01/31/18 MR#: [id number] Acct: [id number] Name: KELSEY WARD Rep #: [id number] : 1950 Provider: Isauro Asif DO Age/Sex: 67/F Location: [facility] [place] Status: Signed Intake Intake Visit Reasons: Knee pain Is patient in pain?: Yes Allergies bee venom protein (honey bee) Allergy (Verified 09/09/17 00:50) Anaphylaxis levofloxacin [From Levaquin] Allergy (Verified 09/09/17 00:50) Hives Latex, Natural Rubber Adverse Reaction (Verified 09/09/17 00:50) Other Medications Atorvastatin Calcium 40 mg PO DAILY 09/09/17 [History Confirmed 09/09/17] Cholecalciferol (Vitamin D3) [Vitamin D3] 2,000 unit PO DAILY 09/09/17 [History Confirmed 09/09/17] Levothyroxine [Synthroid] 100 mcg PO DAILY 09/09/17 [History Confirmed 09/09/17] Losartan Potassium [Cozaar] 100 mg PO DAILY 09/09/17 [History Confirmed 09/09/17] Pantoprazole Sodium [Protonix] 40 mg PO DAILY #30 tab 09/10/17 [Rx] celecoxib 200 mg capsule 200 mg PO QDAY #30 cap 01/31/18 [Rx] duloxetine 30 mg capsule,delayed release 30 mg PO ONCE cap 01/31/18 [History Confirmed 01/31/18] PFSH Medical History Hypertension (Chronic) Peptic ulcer (Chronic) Surgical History History of cholecystectomy (Inactive) History of hysterectomy (Inactive) History of tonsillectomy (Inactive) S/P left knee arthroscopy (Inactive) Family History Mother CVA (cerebral vascular accident) Cancer Father Hypertension Social History Smoking Status: Never smoker HPI Knee pain: Details: KELSEY WARD is a 67 year old F here today for bilateral knee pain, her last injection was July and helpful except for when she was in [place] in august. She has lateral left knee pain and medial right knee pain, clicking and difficulty with getting up from seated position. Denies numbness, tingling or other associated symptoms. Denies calf pain. ROS [place] Reports as per HPI, Reports limited joint movement, Reports stiffness, Reports joint swelling, Reports joint pain, Reports abnormal walking Neuro Yes abnormal walking Ortho Exam Right Knee KNEE: Patient is alert and oriented 3 no acute distress. Appropriate eye contact and affect. Otherwise intact from L1-S1 distributions bilaterally she has +1 pulses. She has bilateral varus knees with mild effusions noted. She has patellofemoral pain and medial joint line pain with range of motion bilaterally consistent with her previous diagnoses of osteoarthritis. No calf pain negative Homans no signs of erythema. Patient requesting bilateral knee injections Office Procedures Ortho Injections Injections Yes Knee Bilateral Details: Obtained consent for injection. Under sterile conditions, injected the patients bilateral knee with a 10cc cocktail of 8cc bupivacaine and 2cc kenalog. The patient tolerated the injection well without any noted complication. Patient should call our office if redness develops, pain worsens or if they have any concerns. Office Meds Kenalog Performing Provider: Isauro Asif DO Administered by: Isauro Asif DO on 01/31/18 09:05 Dose Route Admin Location Lot Number Expiration Date NDC Car Hiker 2 mg IM bilateral knee [id number] 01/28/19 6262-9394-47 [facility] [employer] [facility] Assessment AND Plan 1. Chronic pain of both knees M25.561; M25.562; G89.29 Orders Orders: Medications Discontinued: Kenalog (triamcinolone acetonide) Discontinued Reason: Of10 mg IM ONCE NS Callie watters Medication has been Documented as given 2. Primary osteoarthritis of both knees M17.0 Plan Assessment: Bilateral knee osteoarthritis bilateral knee pain. Plan: At this point time patient is requesting bilateral knee injections. Patient has responded well to conservative care and would like to continue with that. Patient is not interested in operative intervention at this time. We will proceed with bilateral injections. Patient will follow-up with me in 3 months as needed. Patient can continue to follow up my partner if I am not here for her next injections in April time frame. Patient informed of my departure from my practice. Obtained consent for injection. Under sterile conditions, injected the patients right knee with a 10cc cocktail of 8cc bupivacaine and 2cc kenalog. The patient tolerated the injection well without any noted complication. Patient should call our office if redness develops, pain worsens or if they have any concerns. Obtained consent for injection. Under sterile conditions, injected the patients left knee with a 10cc cocktail of 8cc bupivacaine and 2cc kenalog . The patient tolerated the injection well without any noted complication. Patient should call our office if redness develops, pain worsens or if they have any concerns. Plan Detail Other Orders Orders: Other Medications New: Discontinued: Kenalog (triamcinolone acetonide) Discontinued Reas10 mg IM ONCE NS M25.569 Callie Silva on: Office Medication has been Documented as given Coding Level of Care Code No Charge Diagnoses Chronic pain of both knees M25.561; M25.562; G89.29 Chronicity: chronic Laterality: bilateral Primary osteoarthritis of both knees M17.0 Osteoarthritis type: primary Additional Codes metal hardener.knee ([id number]) 02/05/18 1341 <Electronically signed by Isauro Asif DO> Date Isauro Soriano Signature: Date (if applicable) CC: ALLERGIES ALLERGIES DATE TYPE / CODE NAME / CODE REACTION SEVERITY SOURCE 07/25/2018 Drug Latex, Natural Other Unknown [place] Allergy/416 Rubber/[id number] Community 749366([facility] 526(RXNO) [facility] ED CT) Repository 07/25/2018 Drug levofloxacin/F Hives Unknown [place] Allergy/416 [id number](RXNO Community 607401([facility]) Hospital ED CT) Repository 07/25/2018 Drug bee venom Anaphylaxis Unknown [place] Allergy/416 protein (honey Community 668717([facility] bee)/[id number] Hospital ED CT) 5(RXNORM) Repository 07/25/2018 Drug phenobarbital/ Unknown Unknown [place] Allergy/416 [id number](RXN Community 708592([facility] OR) [facility] ED CT) Repository ENCOUNTERS ENCOUNTERS ADMIT/DISCHARGE ACCOUNT ADMITTING ENCOUNTER LOCATION SOURCE NUMBER CLASS 09/28/2018 [id number] Ambulatory [place] 1 [facility] ing:LAB.FUTUR Repository E 08/06/2018 [id number] Ambulatory [place] 9 [facility] ing:MFPLAB Repository 07/25/2018/ [id number] Verito, Inpatient [place] Alejandra 8 3 Augusto Encounter [facility] ing:EL1Pdng: Repository CZ432Drc: 1 07/16/2018 [id number] Ambulatory [place] Alejandra 4 [facility] ing:LAB Repository 05/30/2018/ [id number] [place], Inpatient [place] 8 0 August[place] Encounter [facility] ing:VS9Qfzk: Repository NK039Ylf: 1 05/11/2018 [id number] Ambulatory [place] 9 [facility] ing:MFPLAB Repository 05/03/2018 [id number] Ambulatory [place] Alejandra 8 [facility] ing:LAB Repository 02/23/2018 [id number] Ambulatory [place] 6 [facility] ing:MFPLAB Repository 01/31/2018/ [id number] Ambulatory BMSBuilding:B Alejandra 8 0 [facility] Repository PAYERS PAYERS ENCOUNTER GUARANTOR PAYER SUBSCRIBER SOURCE 09/28/2018 KELSEY Alfredo Primary KELSEY Alfredo Alejandra [id number] Insurance:HUMANA STUTLERDOB: Community [employer] [id number] Number: Repository [address]Oga: 330 [id number] [phone] () Date:[id number] [address] [address]MW: 09/28/2018 Secondary NOT GIVENUNK Alejandra Insurance:SELF PAY [facility] Number: Effective Repository Date:2018-09-10 08/06/2018 KELSEY Alfredo Primary KELSEY A Alejandra [id number] Insurance:HUMANA STUTLERDOB: Community [employer] [place] [id number] Number: Repository [address]Nil: 330 [id number] [phone] () Date:[id number] [address]HB: 08/06/2018 Secondary NOT GIVENUNK Alejandra Insurance:SELF PAY [facility] Number: Effective Repository Date:2018-08-06 07/25/2018 KELSEY Alfredo Primary KELSEY Alfredo [place] [id number] Insurance:HUMANA STUTLERDOB: Community [employer] [place] [id number] Number: Repository [address]Tfw: 330 [id number] [phone] () Date:[id number] [address]QV: 07/25/2018 Secondary NOT GIVENUNK Alejandra Insurance:SELF PAY [facility] Number: Effective Repository Date:2018-05-07 07/16/2018 KELSEY Alfredo Primary KELSEY A [place] [id number] Insurance:HUMANA STUTLERDOB: [facility] MEDICARE [employer] [id number] Number: Repository [address]Nun: (330 [id number] [phone] (HP) Date:2364-23-89SS [address] [address]UN: 07/16/2018 Secondary NOT GIVENUNK Alejandra Insurance:SELF PAY [facility] Number: Effective Repository Date:2018-07-16 05/30/2018 KELSEY A Primary KELSEY A Alejandra [id number] Insurance:HUMANA STUTLERDOB: [facility] MEDICARE [employer] [id number] Number: Repository [address]Gin: (330) [id number] [phone] (HP) Date:1135-78-24GP [address] [address]IR: 05/30/2018 Secondary NOT GIVENUNK Alejandra Insurance:SELF PAY [facility] Number: Effective Repository Date:2018-05-04 05/11/2018 KELSEY A Primary KELSEY A Alejandra [id number] Insurance:HUMANA STUTLERDOB: [facility] MEDICARE [employer] [id number] Number: Repository [address]Tdg: (330 [id number] [phone] (HP) Date:5509-48-27QI [address] [address]RQ: 05/11/2018 Secondary NOT GIVENUNK [place] Insurance:SELF PAY [facility] Number: Effective Repository Date:2018-05-11 05/03/2018 KELSEY A Primary KELSEY A [place] [id number] Insurance:HUMANA STUTLERDOB: [facility] MEDICARE [employer] [id number] Number: Repository [phone]: (330 [id number] [phone] (HP) Date:8957-06-92UZ [address] [address]EV: 05/03/2018 Secondary NOT GIVENUNK Alejandra Insurance:SELF PAY [facility] Number: Effective Repository Date:2018-05-03 02/23/[address] [facility] KELSEY [place] [id number] Insurance:HUMANA STUTLERDOB: Community [facility] MEDICARE [employer] [id number] Number: Repository [address]Blb: 330 [id number] [phone] () Date:0032-39-38EV [address] [address]ZD: 02/23/2018 Secondary NOT GIVENUNK Alejandra Insurance:SELF PAY [facility] Number: Effective Repository Date:2018-02-23 01/31/[address] [facility] KELSEY [place] [id number] Insurance:HUMANA STUTLERDOB: Community [employer] [id number] Number: Repository [address]Wwk: 330 [id number] [phone] () Date:7963-07-90ZF [address] [address]JH: 01/31/2018 Secondary NOT GIVENUNK Alejandra Insurance:SELF PAY [facility] Number: Effective Repository Date:2018-01-22
== END ==
PROVIDERS: Family Provider Family Medicine; PCP Family Medicine; Visit Provider Family Medicine
DX: Z00.00 Encounter for general adult medical examination without abnormal findings (principal); D64.9 Anemia, unspecified; E78.5 Hyperlipidemia, unspecified; E55.9 Vitamin D deficiency, unspecified
CPT/HCPCS: 36415; 80053; 80061; 82306; 84443; 85025

== ENCOUNTER → 2018-10-25 13:47 | Outpatient (CLI) | payer MEDICARE, SELFPAY ==
[2018-07-25 14:40] VITALS: BMI 40.2
--- NOTE | 2018-10-25 13:49 | BI_ITS ---
MAMMOGRAPHY - BILATERAL SCREENING REASON FOR EXAM: Female, 68 years old. Routine annual screening examination. PERTINENT HISTORY: Non-contributory. History of bilateral breast reduction surgery. TECHNIQUE: Digital bilateral breast sade (3D mammographic acquisition) in the CC and MLO projections. 2-D mediolateral oblique (MLO) and craniocaudad (CC) views of both breasts were obtained. CAD: Full Field Digital Mammography with Computer Added Detection was performed. COMPARISON: Comparison is made with prior examination September 18, 2014. FINDINGS: Breast Composition: There are scattered areas of fibroglandular density. There are no dominant masses or suspicious calcifications. Stable asymmetric breast tissue where more breast tissue is seen in the upper-outer quadrant of the left breast as compared to the right side. No other significant abnormalities are identified. There has been no significant change since the prior study. BI/SCREENING MAMM (CAD), BILAT IMPRESSION: Stable bilateral screening mammogram. Yearly follow-up mammogram recommended. (A) ASSESSMENT CATEGORY: BIRADS Category 2: Benign. A letter regarding these results will be sent to the patient by the facility within 30 days. Approximately 10% of breast cancers are not detected by mammography. A normal mammogram should not delay biopsy of a clinically suspicious abnormality. [id number] Electronically Signed: Fabian Chapman MD at 15:33 EST Tel [phone], Service support ,
--- NOTE | 2018-10-25 13:54 | BD_ITS ---
STUDY: DUAL ENERGY X-RAY ABSORPTIOMETRY / DXA REASON FOR EXAM: Female, 68 years old. The patient is postmenopausal. Loss of height. TECHNIQUE: Bone Mineral Density (BMD) measurements of lumbar spine and bilateral hips were obtained. COMPARISON: None. FINDINGS: Lumbar Spine (L1-L4): g/cm2 (1.237) / T-score (0.6) / Z-score (2.2) Findings are suggestive of normal bone density with a low fracture risk. Left Femur Total: g/cm2 (0.978) / T-score (-0.2) / Z-score (1.0) Left Femoral Neck: g/cm2 (0.884) / T-score (-1.1) / Z-score (0.4) Right Femur Total: g/cm2 (0.916) / T-score (-0.7) / Z-score (0.5) Right Femoral Neck: g/cm2 (0.881) / T-score (-1.1) / Z-score (0.4) BD/Dexa Bone Density Study IMPRESSION: The patient is considered osteopenic as outlined below according to World Y[employer] Organization (WHO) criteria with a low fracture risk. Reference Information: The T-score is the number of standard deviations above or below the standard which is normal for young adults at their peak bone mineral density. The World Health Organization (WHO) interprets the T-scores as follows: Above -1 Normal bone density Between -1 and -2.5 Osteopenia Equal to / or below -2.5 Osteoporosis As a practical clinical guideline, osteopenia may be graded as follows: Mild -1 through -1.5 Moderate -1.6 through -2.0 Severe -2.1 through -2.4 The Z-score is the number of standard deviations above or below age-matched controls. A Z-score of less than -1.5 would be considered abnormal. References: 1. NIH Osteoporosis and Related Bone Diseases http://www.osteo.org 2. International Society for Clinical Densitometry http://www.iscd.org 3. National Osteoporosis Foundation http://www.nof.org Electronically Signed: Fabian Chapman MD at 10:10 EST Tel [phone], Service support ,
== END ==
PROVIDERS: Family Provider Family Medicine; PCP Family Medicine; Visit Provider Family Medicine
DX: Z12.31 Encounter for screening mammogram for malignant neoplasm of breast (principal); Z78.0 Asymptomatic menopausal state
CPT/HCPCS: 77063; 77067; 77080

== ENCOUNTER → 2019-03-13 | Outpatient (CLI) | payer MEDICARE, SELFPAY ==
[2019-03-13 16:17] LABS: Anion Gap 7 (5-15); BUN 12 mg/dL (7-18); BUN/Creat Ratio 16.9 RATIO (10-20); Calcium,Total 9.2 mg/dL (8.5-10.1); Chloride 105 mmol/L (98-107); Cholesterol 216 mg/dL (200); Creatinine, Serum 0.71 mg/dL (0.55-1.02); EST Glomerular Filtration Rate 87 mL/min (>60); Est Glom Filt Rate - Afr Amer 105 mL/min (>60); Glucose 90 mg/dL (74-106); High Density Lipoprotein 64 mg/dL; Potassium 3.8 mmol/L (3.5-5.1); Sodium Level 142 mmol/L (136-145); Thyroid Stim Hormone (TSH) 1.86 uIU/mL (0.358-3.74); Triglycerides 163 mg/dL; Very Low Density Lipoprotein 33 mg/dL (5-40)
== END | disposition home or self-care (01) ==
PROVIDERS: Family Provider Family Medicine; PCP Family Medicine; Referring Provider Family Medicine; Visit Provider Family Medicine
DX: I10 Essential (primary) hypertension (principal); E03.9 Hypothyroidism, unspecified
CPT/HCPCS: 36415; 80048; 80061; 84443

== ENCOUNTER → 2021-08-23 09:20 | Outpatient (CLI) | payer MEDICARE, SELFPAY ==
[2021-08-23 11:11] LABS: Anion Gap 6 (5-15); BUN 15 mg/dL (7-18); BUN/Creat Ratio 18.5 RATIO (10-20); Chloride 106 mmol/L (98-107); Cholesterol 184 mg/dL (200); Creatinine, Serum 0.81 mg/dL (0.55-1.02); EST Glomerular Filtration Rate 74 mL/min (>60); Est Glom Filt Rate - Afr Amer 90 mL/min (>60); Glucose 110 mg/dL (74-106); High Density Lipoprotein 62 mg/dL; Potassium 3.8 mmol/L (3.5-5.1); Sodium Level 140 mmol/L (136-145); Triglycerides 107 mg/dL; Very Low Density Lipoprotein 21 mg/dL (5-40)
== END ==
PROVIDERS: PCP Family Medicine; Referring Provider Family Medicine; Visit Provider Family Medicine
DX: Z00.00 Encounter for general adult medical examination without abnormal findings (principal); E55.9 Vitamin D deficiency, unspecified; I10 Essential (primary) hypertension
CPT/HCPCS: 36415; 80048; 80061; 82306

== ENCOUNTER → 2021-09-28 13:04 | Outpatient (CLI) | payer MEDICARE, SELFPAY ==
--- NOTE | 2021-09-28 13:14 | BI_ITS ---
MAMMOGRAPHY - BILATERAL SCREENING REASON FOR EXAM: Female, 71 years old. Routine annual screening examination. PERTINENT HISTORY: Non-contributory. History of prior bilateral breast reduction surgery. TECHNIQUE: Digital bilateral breast natalee (3D mammographic acquisition) in the CC and MLO projections. 2-D mediolateral oblique (MLO) and craniocaudad (CC) views of both breasts were obtained. CAD: Full Field Digital Mammography with Computer Added Detection was performed. COMPARISON: Comparison is made with prior study dated 10/25/2018. FINDINGS: Breast Composition: There are scattered areas of fibroglandular density. There are no dominant masses or suspicious calcifications. The previously seen asymmetrical breast tissue in the deep upper lateral aspect of the left breast is not as apparent at this time. No new mass lesion or cluster microcalcifications present. No other significant abnormalities are identified. There has been no significant change since the prior study. BI/SCRN MAMM (CAD)W/NATALEE BILAT IMPRESSION: Stable bilateral screening mammogram. Yearly follow-up mammogram recommended. (A) ASSESSMENT CATEGORY: BIRADS Category 2: Benign. A letter regarding these results will be sent to the patient by the facility within 30 days. Approximately 10% of breast cancers are not detected by mammography. A normal mammogram should not delay biopsy of a clinically suspicious abnormality. [id number] Electronically Signed: Fabian Chapman MD at 14:10 EST , Service support ,
--- NOTE | 2021-09-28 13:57 | BD_ITS ---
STUDY: DUAL ENERGY X-RAY ABSORPTIOMETRY / DXA REASON FOR EXAM: Female, 71 years old. Z780. The patient is postmenopausal. TECHNIQUE: Bone Mineral Density (BMD) measurements of lumbar spine and bilateral hips were obtained. COMPARISON: Comparison is made with prior study dated 10/25/2018. FINDINGS: Lumbar Spine (L1-L4): g/cm2 (1.117) / T-score (0.6) / Z-score (2.7) Findings are suggestive of normal bone density with a low fracture risk. Left Femur Total: g/cm2 (1.002) / T-score (0.5) / Z-score (2.0) Left Femoral Neck: g/cm2 (0.6-2) / T-score (-2.0) / Z-score (-0.3) Right Femur Total: g/cm2 (0.973) / T-score (0.3) / Z-score (1.7) Right Femoral Neck: g/cm2 (0.741) / T-score (-1.0) / Z-score (0.8) The T-Scores on the most recent prior examination were: Lumbar Spine (L1-L4): There has been worsening of bone density since the previous examination. Left Femur Total: which represents an improvement of 9.7%. Right Femur Total: which represents an improvement of 14.7%. BD/Dexa Bone Density Study IMPRESSION: The patient is considered osteopenic as outlined below according to World Yomi Organization (WHO) criteria with a moderate fracture risk. There has been improvement of bone density since the previous examination. Reference Information: The T-score is the number of standard deviations above or below the standard which is normal for young adults at their peak bone mineral density. The World Health Organization (WHO) interprets the T-scores as follows: Above -1 Normal bone density Between -1 and -2.5 Osteopenia Equal to / or below -2.5 Osteoporosis As a practical clinical guideline, osteopenia may be graded as follows: Mild -1 through -1.5 Moderate -1.6 through -2.0 Severe -2.1 through -2.4 The Z-score is the number of standard deviations above or below age-matched controls. A Z-score of less than -1.5 would be considered abnormal. References: 1. NIH Osteoporosis and Related Bone Diseases www osteo.org 2. International Society for Clinical Densitometry www iscd.org 3. National Osteoporosis Foundation www nof.org Electronically Signed: Fabian Chapman MD at 9:55 EST , Service support ,
== END ==
PROVIDERS: PCP Family Medicine; Referring Provider Family Medicine; Visit Provider Family Medicine
DX: Z00.00 Encounter for general adult medical examination without abnormal findings (principal); Z12.31 Encounter for screening mammogram for malignant neoplasm of breast; Z78.0 Asymptomatic menopausal state
CPT/HCPCS: 77063; 77067; 77080

== ENCOUNTER → 2022-08-24 | Outpatient (CLI) | payer MEDICARE, SELFPAY ==
[2022-08-24 10:46] LABS: Anion Gap 6 (5-15); BUN 12 mg/dL (7-18); BUN/Creat Ratio 16.7 RATIO (10-20); Calcium,Total 8.8 mg/dL (8.5-10.1); Chloride 107 mmol/L (98-107); Cholesterol 170 mg/dL (200); Creatinine, Serum 0.72 mg/dL (0.55-1.02); EST Glomerular Filtration Rate 85 mL/min (>60); Est Glom Filt Rate - Afr Amer 103 mL/min (>60); Glucose 102 mg/dL (74-106); High Density Lipoprotein 55 mg/dL; Potassium 3.3 mmol/L (3.5-5.1); Sodium Level 141 mmol/L (136-145); Thyroid Stim Hormone (TSH) 3.12 uIU/mL (0.358-3.74); Triglycerides 128 mg/dL; Very Low Density Lipoprotein 26 mg/dL (5-40)
== END | disposition home or self-care (01) ==
LOC: MFPLAB 09:11
PROVIDERS: PCP Family Medicine; Referring Provider Family Medicine; Visit Provider Family Medicine
DX: Z00.00 Encounter for general adult medical examination without abnormal findings (principal); E03.9 Hypothyroidism, unspecified
CPT/HCPCS: 36415; 80048; 80061; 84443

== ENCOUNTER → 2022-08-31 | Outpatient (CLI) | payer MEDICARE, SELFPAY ==
[2022-08-31 13:13] LABS: Anion Gap 6 (5-15); BUN 12 mg/dL (7-18); BUN/Creat Ratio 14.2 RATIO (10-20); Calcium,Total 9.2 mg/dL (8.5-10.1); Chloride 104 mmol/L (98-107); Creatinine, Serum 0.84 mg/dL (0.55-1.02); EST Glomerular Filtration Rate 71 mL/min (>60); Est Glom Filt Rate - Afr Amer 86 mL/min (>60); Glucose 117 mg/dL (74-106); Potassium 3.9 mmol/L (3.5-5.1); Sodium Level 137 mmol/L (136-145)
== END | disposition home or self-care (01) ==
LOC: MFPLAB 10:45
PROVIDERS: PCP Family Medicine; Referring Provider Family Medicine; Visit Provider Family Medicine
DX: R42 Dizziness and giddiness (principal)
CPT/HCPCS: 36415; 80048

== ENCOUNTER → 2023-08-28 | Outpatient (CLI) | payer MEDICARE, SELFPAY ==
[2023-08-28 10:15] LABS: Anion Gap 2 (5-15); BUN 14 mg/dL (7-18); BUN/Creat Ratio 16.8 RATIO (10-20); Calcium,Total 9.2 mg/dL (8.5-10.1); Chloride 108 mmol/L (98-107); Cholesterol 201 mg/dL (200); Creatinine, Serum 0.83 mg/dL (0.55-1.02); EST Glomerular Filtration Rate 72 mL/min (>60); Est Glom Filt Rate - Afr Amer 87 mL/min (>60); Glucose 108 mg/dL (74-106); High Density Lipoprotein 62 mg/dL; Potassium 3.8 mmol/L (3.5-5.1); Sodium Level 137 mmol/L (136-145); Triglycerides 172 mg/dL; Very Low Density Lipoprotein 34 mg/dL (5-40)
== END | disposition home or self-care (01) ==
PROVIDERS: PCP Family Medicine; Visit Provider Family Medicine
DX: Z00.00 Encounter for general adult medical examination without abnormal findings (principal)
CPT/HCPCS: 36415; 80048; 80061

== ENCOUNTER → 2024-03-22 | Outpatient (CLI) | payer MEDICARE, SELFPAY ==
[2024-03-22 13:23] LABS: AST(SGOT) 20 U/L (15-37); Alanine Aminotransfer ALT/SGPT 20 U/L (13-56); Albumin, Serum 3.7 g/dL (3.2-5.0); Alkaline Phosphatase 97 U/L (45-117); Anion Gap 5 (5-15); BUN 18 mg/dL (7-18); BUN/Creat Ratio 25.1 RATIO (10-20); Chloride 107 mmol/L (98-107); Cholesterol 219 mg/dL (200); Creatinine, Serum 0.72 mg/dL (0.55-1.02); EST Glomerular Filtration Rate 85 mL/min (>60); Est Glom Filt Rate - Afr Amer 103 mL/min (>60); Globulin 3.7 g/dL (2.2-4.2); Glucose 103 mg/dL (74-106); High Density Lipoprotein 62 mg/dL; Protein, Total 7.4 g/dL (6.4-8.2); Sodium Level 140 mmol/L (136-145); Triglycerides 119 mg/dL; Very Low Density Lipoprotein 24 mg/dL (5-40)
== END | disposition home or self-care (01) ==
LOC: MFPLAB 10:31
PROVIDERS: PCP Family Medicine; Visit Provider Family Medicine
DX: E78.5 Hyperlipidemia, unspecified (principal)
CPT/HCPCS: 36415; 80053; 80061

== ENCOUNTER → 2024-10-01 | Outpatient (CLI) | payer MEDICARE, SELFPAY ==
[2024-10-01 12:21] LABS: Anion Gap 7 (5-15); BUN 18 mg/dL (7-18); BUN/Creat Ratio 23.3 RATIO (10-20); Calcium,Total 9.1 mg/dL (8.5-10.1); Chloride 105 mmol/L (98-107); Cholesterol 261 mg/dL (200); Creatinine, Serum 0.77 mg/dL (0.55-1.02); EST Glomerular Filtration Rate 78 mL/min (>60); Est Glom Filt Rate - Afr Amer 94 mL/min (>60); Glucose 108 mg/dL (74-106); High Density Lipoprotein 67 mg/dL; Potassium 3.7 mmol/L (3.5-5.1); Sodium Level 139 mmol/L (136-145); Triglycerides 118 mg/dL; Very Low Density Lipoprotein 24 mg/dL (5-40)
== END | disposition home or self-care (01) ==
LOC: MFPLAB 10:40
PROVIDERS: PCP Family Medicine; Referring Provider Family Medicine; Visit Provider Family Medicine
DX: E78.5 Hyperlipidemia, unspecified (principal); E87.6 Hypokalemia
CPT/HCPCS: 36415; 80048; 80061

== ENCOUNTER 2024-10-04 11:44 | Outpatient (CLI) | payer MEDICARE, SELFPAY ==
--- NOTE | 2024-10-04 11:47 | BI_ITS ---
MAMMOGRAPHY - BILATERAL SCREENING REASON FOR EXAM: Female, 74 years old. Routine annual screening examination. PERTINENT HISTORY: Non-contributory. History of prior bilateral breast reduction surgery. TECHNIQUE: Digital bilateral breast natalee (3D mammographic acquisition) in the CC and MLO projections. 2-D mediolateral oblique (MLO) and craniocaudad (CC) views of both breasts were obtained. CAD: Full Field Digital Mammography with Computer Added Detection was performed. COMPARISON: Comparison is made with prior study dated September 28, 2021 and October 25, 2018. FINDINGS: Breast Composition: The breasts are almost entirely fatty. There are no dominant masses or suspicious calcifications. No other significant abnormalities are identified. There has been no significant change since the prior study. BI/SCRN MAMM (CAD)W/NATALEE BILAT IMPRESSION: Stable bilateral screening mammogram. Yearly follow-up mammogram recommended. (A) ASSESSMENT CATEGORY: BIRADS Category 2: Benign. A letter regarding these results will be sent to the patient by the facility within 30 days. Approximately 10% of breast cancers are not detected by mammography. A normal mammogram should not delay biopsy of a clinically suspicious abnormality. [id number] Electronically Signed: Fabian Chapman MD at 13:14 EST ,
--- NOTE | 2024-10-04 11:48 | BD_ITS ---
STUDY: DUAL ENERGY X-RAY ABSORPTIOMETRY / DXA REASON FOR EXAM: Female, 74 years old. V76.12ScreeningBONE DENSITY REASON FOR EXAM TECHNIQUE: Bone Mineral Density (BMD) measurements of lumbar spine and bilateral hips were obtained. COMPARISON: Comparison is made with prior study dated September 28, 2021. FINDINGS: Lumbar Spine (L1-L4): g/cm2 (1.126) / T-score (0.7) / Z-score (3.0) Findings are suggestive of normal bone density with a low fracture risk. Left Femur Total: g/cm2 (0.986) / T-score (0.4) / Z-score (2.0) Left Femoral Neck: g/cm2 (0.625) / T-score (-2.0) / Z-score (-0.1) Right Femur Total: g/cm2 (0.984) / T-score (0.3) / Z-score (2.0) Right Femoral Neck: g/cm2 (0.764) / T-score (-0.8) / Z-score (1.2) The T-Scores on the most recent prior examination were: Lumbar Spine (L1-L4): There has been improvement of bone density since the previous examination. Left Femur Total: which represents a worsening of 1.5%. Right Femur Total: which represents an improvement of 1.1%. BD/Dexa Bone Density Study IMPRESSION: The patient is considered osteopenic as outlined below according to World Yomi Organization (WHO) criteria with a moderate fracture risk. There has been improvement of bone density since the previous examination. Reference Information: The T-score is the number of standard deviations above or below the standard which is normal for young adults at their peak bone mineral density. The World Health Organization (WHO) interprets the T-scores as follows: Above -1 Normal bone density Between -1 and -2.5 Osteopenia Equal to / or below -2.5 Osteoporosis As a practical clinical guideline, osteopenia may be graded as follows: Mild -1 through -1.5 Moderate -1.6 through -2.0 Severe -2.1 through -2.4 The Z-score is the number of standard deviations above or below age-matched controls. A Z-score of less than -1.5 would be considered abnormal. References: 1. NIH Osteoporosis and Related Bone Diseases www osteo.org 2. International Society for Clinical Densitometry www iscd.org 3. National Osteoporosis Foundation www nof.org Electronically Signed: Fabian Chapman MD at 15:04 EST ,
== END 2024-10-04 23:59 | disposition home or self-care (01) ==
LOC: OPBD 11:45
PROVIDERS: PCP Family Medicine; Referring Provider Family Medicine; Visit Provider Family Medicine
DX: Z12.31 Encounter for screening mammogram for malignant neoplasm of breast (principal); M81.0 Age-related osteoporosis without current pathological fracture
CPT/HCPCS: 77063; 77067; 77080

== ENCOUNTER → 2025-05-01 | Outpatient (CLI) | payer MEDICARE, SELFPAY ==
[2025-05-01 16:10] LABS: AST(SGOT) 21 U/L (<=31); Alanine Aminotransfer ALT/SGPT 10 U/L (<=34); Albumin, Serum 4.0 g/dL (3.4-4.8); Alkaline Phosphatase 112 U/L (35-104); Anion Gap 12 (5-15); BUN 12 mg/dL (4-19); BUN/Creat Ratio 15.1 RATIO (10-20); Calcium,Total 9.1 mg/dL (7.6-11.0); Carbon Dioxide 22.5 mmol/L (21.0-32.0); Chloride 105 mmol/L (98-108); Cholesterol 168 mg/dL (<=200); Globulin 2.9 g/dL (2.2-4.2); Glucose 101 mg/dL (70-99); Low Density Lipoprotein Calc. 87 mg/dL; Potassium 3.8 mmol/L (3.3-5.1); Triglycerides 140 mg/dL; Very Low Density Lipoprotein 28 mg/dL (5-40); cholesterol:hdl ratio screen 3.18
== END | disposition home or self-care (01) ==
LOC: MTLAB 12:49
PROVIDERS: PCP Family Medicine; Referring Provider Family Medicine; Visit Provider Family Medicine
DX: E78.5 Hyperlipidemia, unspecified (principal)
CPT/HCPCS: 36415; 80053; 80061